=== PATIENT | female | born 1960 | race Caucasian/White ===

== ENCOUNTER → 2016-06-27 | Outpatient (CLI) | payer OTHER ==
[~2016-06-27] MED LIST: ALBUAER9; ALLO100T PO; ATEN-173 PO; CARB1SOL OPB; CYCL10TA6 PO; DIAZ5TAB PO; DOCU50CA2; HYDR-5688 PO; LSN/10125 PO; METH-446 PO; MOME100A INH; MONT1TAB3 PO; OXYB5TAB; PANT40TA PO; SIMV20TA5 PO; VENL75CA PO; ZOLP5TAB PO
== END | disposition home or self-care (01) ==
LOC: C.PATHSPEC 16:56
PROVIDERS: ATTEND Nurse Practitioner Adult Health
DX: R31.29 Other microscopic hematuria (principal)

== ENCOUNTER → 2016-06-27 | Outpatient (CLI) | payer OTHER ==
--- NOTE | 2016-06-27 09:58 | DIAGNOSTIC IMAGING REPORT ---
ABDOMEN AND PELVIS CT WITHOUT CONTRAST CT DOSE: 653.68 mGycm HISTORY: Flank pain R10.9 Right flank painN20.0 Nephrolithiasisno latex allergy E X0 TECHNIQUE: Multiaxial CT images of the abdomen and pelvis were performed without contrast. COMPARISON STUDY: None. FINDINGS: Lung bases are clear. Liver appears uniform. There is a 1.6 cm cyst anterior right hepatic lobe. Gallbladder is either severely contracted or absent. Bowel pattern is nonobstructive. Appendix has been removed. The kidneys negative for calcification or hydronephrosis. Bladder is midline. There are several pelvic calcifications. These primarily appear to be vascular. There is no evidence for an obstructing urinary tract calculus. IMPRESSION: Negative study of the abdomen and pelvis. Study specifically negative for nephrocalcinosis. Electronically signed by: Marciano Matson M.D. 06/27/2016 9:57 AM Dictated Date/Time: 06/27/2016 9:51 AM
== END | disposition home or self-care (01) ==
LOC: C.CTS 09:29
PROVIDERS: ATTEND Urology
DX: N20.0 Calculus of kidney (principal); R10.9 Unspecified abdominal pain

== ENCOUNTER → 2017-09-03 | Outpatient (CLI) | payer OTHER ==
--- NOTE | 2017-09-03 15:22 | DIAGNOSTIC IMAGING REPORT ---
[facility] CLINICAL HISTORY: R10.9 Right flank [id number] COMPARISON STUDY: CT scan dated 06/27/2016 FINDINGS: There is no pathologic bowel dilatation. The renal shadows are largely obscured by overlying bowel gas and fecal material. No definite renal calculi are visualized. There are multiple nonspecific pelvic basin calcifications likely representing phleboliths. If there is clinical concern over the presence of a ureteral calculus, a CT scan could be obtained in follow-up. There are postsurgical changes present within the lower lumbar spine. IMPRESSION: 1. No evidence of pathologic bowel dilatation 2. No definite urinary tract calculi are visualized on conventional radiographic imaging. Electronically signed by: Abhishek Graves M.D. 09/03/2017 3:21 PM Dictated Date/Time: 09/03/2017 3:20 PM
== END | disposition home or self-care (01) ==
LOC: C.RAD1850 15:02
PROVIDERS: ATTEND Nurse Practitioner Family
DX: R10.9 Unspecified abdominal pain (principal)

== ENCOUNTER 2024-02-11 16:07 | Inpatient (IN) ==
--- NOTE | 2024-02-11 16:22 | Emergency Department Note ---
Impression & Plan Intermittent hypertension, Intermittent palpitations, Hot flashes, Chest pain ED Provider Note NAME: MARIO OWENS AGE: 63 SEX: F : 1960 ARRIVES VIA: Ambulance INFORMANT: Patient ED PROVIDER(S): Reed Medrano MD CHIEF COMPLAINT: Chest pain, shortness of breath, referred. PLAN: Disposition: Admit MEDICAL DECISION MAKING: The patient is a 63-year-old woman with a past medical history of hypertension, palpitations who presents to the emergency department for evaluation of weeks of constant chest pressure, palpitations, shortness of breath with sweating that began last week where she contacted her cardiology office and was referred to the emergency department where she presented to [place] on Friday where she had unremarkable testing and then returned on Friday due to no improvement. She describes having normal blood tests and also a CT scan that was normal. She reports she has a heart monitor that she is wearing where she understands there were benign extra beats and no high risk arrhythmia. She reports she contacted her cardiology office in [place] and they recommended she come to [facility] today. The patient reports she has had a nuclear stress test in the past and estimates this may have been 1.5 years ago. She denies any measured fevers, cough, nausea, vomiting or diarrhea. The patient received full dose aspirin and nitroglycerin by EMS. On arrival to the emergency department patient reports mild severity/persistence of symptoms. On evaluation the patient is in no distress, afebrile with heart rate in the 110s and blood pressure 140s/90s. She appears clinically dry. EKG with LVH without overt acute ischemia. CXR negative for acute cardiopulmonary process per my personal preliminary review/interpretation. WBC 11K with neutrophilia but no left shift, nonspecific. H/H and platelets within normal limits. Chemistry without metabolic acidosis. BUN/creatinine is 23 and calcium is 10.5, consistent with patient's clinical dry appearance. Magnesium 1.9, within normal limits. LFTs are unremarkable. High-sensitivity troponin 10.1, within normal limits. Respiratory BioFire was negative. Lyme screen was negative. Anaplasma and Babesia smear was negative with DNA testing pending. D-dimer was elevated at [address] of the chest was again repeated and was negative for PE. In the interim we did obtain the patient's assessment from [facility] and her testing was unremarkable including CT of the head and CT of the chest. On reevaluation elevated by nursing the patient had a recurrent episode of hot flashes with tachycardia, diaphoresis and elevated blood pressure. Upon further discussion with the patient she reports that he is episodes have been occurring for weeks in her sweating episodes and elevated blood pressure for months or more. Given the patient's description of episodic symptoms possibility of neuroendocrine etiologies/pheochromocytoma is considered. Random urine metanephrine ordered but is a send out. Otherwise patient's UA is without convincing evidence of infection. Given continued symptoms with third emergency department visit in 3 days patient agrees with referral to hospital service for admission for further management. [facility] who will evaluate the patient for admission. Further management per admitting team. Triage Nursing notes reviewed and agree them. Prior/external medical records reviewed Vital Signs: reviewed Differential diagnosis: Cardiac ischemia, aortic dissection, pulmonary embolism, pneumothorax, pneumonia, pericarditis, myocarditis, esophageal rupture, GERD, cholecystitis, pancreatitis, musculoskeletal, as well as other pathologies. ER treatment provided: See below. Diagnostics interpreted by me: ECG: Sinus tachycardia, 109 bpm, LVH with repolarization abnormality, no overt ST ovation or depression, QTc 484, QRS 112. No prior EKGs for comparison. Cardiac Monitoring: An order for continuous cardiac monitoring was placed and demonstrated Sinus tachycardia, 109 bpm, No ectopy. Laboratory studies: See below Imaging studies: See below Consultation(s): Case was discussed with Christa Vargas, who will evaluate the patient for admission. HPI: The patient is a 63-year-old woman with a past medical history of hypertension, palpitations who presents to the emergency department for evaluation of weeks of constant chest pressure, palpitations, shortness of breath with sweating that began last week where she contacted her cardiology office and was referred to the emergency department where she presented to [place] on Friday where she had unremarkable testing and then returned on Friday due to no improvement. She describes having normal blood tests and also a CT scan that was normal. She reports she has a heart monitor that she is wearing where she understands there were benign extra beats and no high risk arrhythmia. She reports she contacted her cardiology office in [place] and they recommended she come to [facility] today. The patient reports she has had a nuclear stress test in the past and estimates this may have been 1.5 years ago. She denies any measured fevers, cough, nausea, vomiting or diarrhea. The patient received full dose aspirin and nitroglycerin by EMS. ROS: See above HPI for pertinent positives & negatives. A total of 10 systems reviewed and were otherwise negative. VITALS:See Below PHYSICAL EXAMINATION: GENERAL: Awake, alert, anxious appearing, in no distress HENT: Normocephalic, atraumatic. Oropharynx with dry mucous membranes and otherwise unremarkable. EYES: Normal conjunctiva. Sclera non-icteric. NECK: Supple. No nuchal rigidity. FROM. No JVD. RESPIRATORY: Clear to auscultation. CARDIAC: Tachycardic rate, normal rhythm. Extremities warm and well perfused. Pulses equal. ABDOMEN: Soft, non-distended. No tenderness to palpation. No rebound or guarding. No masses. MUSCULOSKELETAL: Chest examination reveals no tenderness. The back is symmetrical on inspection without obvious abnormality. There is no CVA tenderness to palpation. No joint edema. LOWER EXTREMITIES: Calves are equal size bilaterally and non-tender. No edema. No discoloration. NEURO: Normal sensorium. No sensory or motor deficits noted. SKIN: No rash or jaundice noted. Reed Medrano MD Past Med/Surg History Problem List (Updated 02/12/24 @ 04:37 by Reed Medrano MD) Chest pain (Acute) Hot flashes (Acute) Intermittent palpitations (Acute) Intermittent hypertension (Acute) History of recurrent UTIs Vaginal prolapse Social History Smoking Status: Never smoker Second Hand Exposure: No; Do You Dip or Chew Tobacco: No; Hx Alcohol Use: Yes Alcohol type: beer Hx Substance Use: No Preferred Language: Armenian Communication Ability: Effective Western Felt Hat Blocker Required: No Beliefs That Will Affect Care: None Current Living Situation: Spouse Other Information That Helps Us Care for You: No Feels Safe at Home: Yes Safety Concerns: Feels Safe At This Time Assistive Devices: Cane, Glasses and Walker Allergies Allergies Allergy/AdvReac Type Severity Reaction Status Date / Time No Known Allergies Allergy Unverified 11/27/20 15:32 Home Meds Home Medications Medication Instructions Recorded Confirmed allopurinol 300 mg tablet 300 mg PO DAILY 02/12/24 02/12/24 amlodipine 5 mg tablet 5 mg PO DAILY 02/12/24 02/12/24 atenolol 25 mg tablet 25 mg PO DAILY 02/12/24 02/12/24 cholecalciferol (vitamin D3) 50 50 mcg PO DAILY 02/12/24 02/12/24 mcg (2,000 unit) tablet docusate sodium 50 mg capsule 50 mg PO BID 02/12/24 02/12/24 hydrocodone 5 mg-acetaminophen 325 1 tab PO Q6H PRN Pain 02/12/24 02/12/24 mg tablet levothyroxine 125 mcg tablet 125 mcg PO DAILY 02/12/24 02/12/24 mometasone-formoterol HFA 100 2 puff inhalation BID 02/12/24 02/12/24 mcg-5 mcg/actuation aerosol inhaler (Dulera) montelukast 10 mg tablet 10 mg PO DAILY 02/12/24 02/12/24 oxybutynin chloride 10 mg 10 mg PO DAILY 02/12/24 02/12/24 tablet,extended release 24 hr pantoprazole 40 mg tablet,delayed 40 mg PO DAILY 02/12/24 02/12/24 release simvastatin 20 mg tablet 20 mg PO HS 02/12/24 02/12/24 venlafaxine 75 mg capsule,extended 75 mg PO BID 02/12/24 02/12/24 release 24 hr zolpidem 10 mg tablet 10 mg PO HS PRN Insomnia 02/12/24 02/12/24 Results & Data (ED) Vital Signs Vital Signs - 24 hr 02/11/24 16:12 02/11/24 16:19 02/11/24 16:20 Temperature 36.6 C Temperature Source Oral Pulse Rate 112 H Pulse Rate [Right Finger] Pulse Rate from SpO2 Sensor Respiratory Rate 22 Respiratory Effort / Characteristics Non-Labored Respiratory Depth Normal Blood Pressure Blood Pressure [Right Arm] Blood Pressure Mean Blood Pressure Mean [Right Arm] Pulse Oximetry 143 H 97 96 Oxygen Delivery Method Room Air Room Air Room Air Oxygen Flow Rate 0 Sepsis Recent Fever Within 48 Hours No Sepsis New/Unexplained Change in Mental Status N/A Sepsis Action Taken by Nursing No Action Required 02/11/24 16:50 02/11/24 17:30 02/11/24 17:30 Temperature Temperature Source Pulse Rate 112 H Pulse Rate [Right Finger] 115 H Pulse Rate from SpO2 Sensor Respiratory Rate 21 Respiratory Effort / Characteristics Non-Labored Respiratory Depth Normal Blood Pressure 145/93 H Blood Pressure [Right Arm] 145/93 H Blood Pressure Mean 101 Blood Pressure Mean [Right Arm] 110 Pulse Oximetry 98 Oxygen Delivery Method Room Air Oxygen Flow Rate Sepsis Recent Fever Within 48 Hours Sepsis New/Unexplained Change in Mental Status Sepsis Action Taken by Nursing 02/11/24 17:30 02/11/24 17:45 02/11/24 17:57 Temperature Temperature Source Pulse Rate 106 H 106 H Pulse Rate [Right Finger] Pulse Rate from SpO2 Sensor 107 H Respiratory Rate 21 20 Respiratory Effort / Characteristics Respiratory Depth Blood Pressure 145/93 H Blood Pressure [Right Arm] Blood Pressure Mean 101 Blood Pressure Mean [Right Arm] Pulse Oximetry 96 Oxygen Delivery Method Oxygen Flow Rate Sepsis Recent Fever Within 48 Hours Sepsis New/Unexplained Change in Mental Status Sepsis Action Taken by Nursing 02/11/24 19:36 02/11/24 20:46 02/11/24 21:01 Temperature Temperature Source Pulse Rate 98 H 100 H Pulse Rate [Right Finger] 100 H Pulse Rate from SpO2 Sensor Respiratory Rate 22 18 Respiratory Effort / Characteristics Respiratory Depth Blood Pressure 153/103 H Blood Pressure [Right Arm] 146/105 H Blood Pressure Mean 120 Blood Pressure Mean [Right Arm] 118 Pulse Oximetry 97 96 93 Oxygen Delivery Method Room Air Room Air Room Air Oxygen Flow Rate Sepsis Recent Fever Within 48 Hours Sepsis New/Unexplained Change in Mental Status Sepsis Action Taken by Nursing 02/11/24 21:38 02/11/24 22:08 02/11/24 23:02 Temperature Temperature Source Pulse Rate 110 H 95 H 121 H Pulse Rate [Right Finger] Pulse Rate from SpO2 Sensor 110 H 96 H 99 H Respiratory Rate 21 15 22 Respiratory Effort / Characteristics Respiratory Depth Blood Pressure 149/79 H 158/96 H Blood Pressure [Right Arm] Blood Pressure Mean 102 116 Blood Pressure Mean [Right Arm] Pulse Oximetry 97 96 97 Oxygen Delivery Method Room Air Room Air Room Air Oxygen Flow Rate Sepsis Recent Fever Within 48 Hours Sepsis New/Unexplained Change in Mental Status Sepsis Action Taken by Nursing 02/11/24 23:13 02/12/24 00:03 Temperature 36.6 C Temperature Source Oral Pulse Rate 96 H Pulse Rate [Right Finger] Pulse Rate from SpO2 Sensor Respiratory Rate Respiratory Effort / Characteristics Respiratory Depth Blood Pressure Blood Pressure [Right Arm] Blood Pressure Mean Blood Pressure Mean [Right Arm] Pulse Oximetry Oxygen Delivery Method Oxygen Flow Rate Sepsis Recent Fever Within 48 Hours Sepsis New/Unexplained Change in Mental Status Sepsis Action Taken by Nursing Laboratory Data Attestation: I reviewed the patient's lab results. 02/11/24 17:23 02/11/24 17:23 Lab Results 02/11/24 02/11/24 02/11/24 Range/Units 16:20 16:20 16:45 WBC Cancelled RBC Cancelled Hgb Cancelled Hct Cancelled MCV Cancelled MCH Cancelled MCHC Cancelled RDW Std Deviation Cancelled RDW Coeff of Anoop Cancelled Plt Count Cancelled MPV Cancelled Immature Gran % (Auto) Cancelled Neut % (Auto) Cancelled Lymph % (Auto) Cancelled [place] % (Auto) Cancelled Eos % (Auto) Cancelled Baso % (Auto) Cancelled Neut # (Auto) Cancelled Lymph # (Auto) Cancelled [place] # (Auto) Cancelled Eos # (Auto) Cancelled Baso # (Auto) Cancelled Immature Gran # (Auto) Cancelled Absolute Nucleated RBC Cancelled Nucleated RBC % (auto) Cancelled Neutrophils % (Manual) Cancelled Band Neutrophils % Cancelled Lymphocytes % (Manual) Cancelled Prolymphocyte % Cancelled Reactive Lymphs % (Man) Cancelled Monocytes % (Manual) Cancelled Eosinophils % (Manual) Cancelled Basophils % (Manual) Cancelled Metamyelocytes % (Man) Cancelled Myelocytes % (Man) Cancelled Promyelocytes % (Man) Cancelled Blast Cells % (Manual) Cancelled Plasma Cell % (Manual) Cancelled Other Cells % Cancelled Nucleated RBC % Cancelled Neutrophils # (Manual) Cancelled Band Neutrophils # Cancelled Total Absolute Neuts Cancelled Lymphocytes # (Manual) Cancelled Prolymphocyte # Cancelled Reactive Lymphs # Cancelled Total Abs Lymphocytes Cancelled Monocytes # (Manual) Cancelled Eosinophils # (Manual) Cancelled Basophils # (Manual) Cancelled Metamyelocytes # (Man) Cancelled Myelocytes # (Manual) Cancelled Promyelocytes # (Man) Cancelled Blast Cells # (Man) Cancelled Plasma Cell # (Manual) Cancelled Other Cells # Cancelled Nucleated RBCs # (Man) Cancelled Hypersegmented Neuts Cancelled Hyposegmented Neuts Cancelled Hypogranular Neuts Cancelled Large Granular Lymphs Cancelled # Lrg Granular Lymphs Cancelled Hairy Cells Cancelled Smudge Cells Cancelled Toxic Granulation Cancelled Toxic Vacuolation Cancelled Dohle Bodies Cancelled Dottie Rods Cancelled Platelet Estimate Cancelled Hypogranular Platelets Cancelled Giant Platelets Cancelled Platelet Satelliting Cancelled RBC Morphology Cancelled Polychromasia Cancelled Hypochromasia Cancelled Poikilocytosis Cancelled Basophilic Stippling Cancelled Anisocytosis Cancelled Microcytosis Cancelled Macrocytosis Cancelled Spherocytes Cancelled Pappenheimer Bodies Cancelled Sickle Cells Cancelled Target Cells Cancelled Tear Drop Cells Cancelled Ovalocytes Cancelled Stomatocytes Cancelled Avilez-[place] Bodies Cancelled Echinocytes Cancelled Acanthocytes (Spur) Cancelled Rouleaux Cancelled RBC Agglutinates Cancelled Schistocytes Cancelled Sezary Cell Cancelled PT Cancelled INR Cancelled D-Dimer Cancelled Cancelled Sodium TNP Potassium TNP Chloride 101 (98-107) mmol/L Carbon Dioxide 25 (21-32) mmol/L Anion Gap TNP BUN 20 (6-23) mg/dl Creatinine 0.85 (0.6-1.2) mg/dl Est Cr Clr Drug Dosing 71.9 ml/min eGFR 77.41 BUN/Creatinine Ratio 23.5 H (10-20) Glucose 103 H (70-99(Fasting)) mg/dl Calcium 10.5 H (8.6-10.3) mg/dl Magnesium TNP Total Bilirubin 0.5 (0.2-1.0) mg/dl AST TNP ALT 21 (7-52) U/L Alkaline Phosphatase 82 (34-104) U/L Troponin I High Sens 10.1 (0-14) pg/ml Total Protein 7.8 (6.0-8.3) gm/dl Albumin 4.7 (3.4-5.0) gm/dl Globulin 3.1 (2.5-4.0) gm/dl Albumin/Globulin Ratio 1.5 (0.9-2) Lipase 25 (11-82) U/L TSH Cancelled Urine Color Yellow Urine Appearance Clear (Clear) Urine pH 6.0 (4.5-7.5) Ur Specific [place] 1.010 (1.000-1.030) Urine Protein Negative (Negative) Urine Glucose (UA) Negative (Negative) Urine Ketones Trace H (Negative) Urine Blood 2+ H (Negative) Urine Nitrite Negative (Negative) Urine Bilirubin Negative (Negative) Urine Urobilinogen Negative (Negative) Ur Leukocyte Esterase Negative (Negative) Urine WBC (Auto) 0-5 (0-5) /hpf Urine RBC (Auto) 3-5 H (0-2) /hpf U Hyaline Cast (Auto) 0-2 (0-2) /lpf U Epithel Cells (Auto) 0-2 (0-2) /hpf Urine Bacteria (Auto) None Seen (None Seen) Adenovirus (PCR) (NotDetected) Anaplasma Smear Cancelled Babesia Smear Cancelled B. pertussis DNA (PCR) (NotDetected) B.parapertussis DNA PCR (NotDetected) Lyme Disease Screen (Negative) C. pneumoniae DNA (PCR) (NotDetected) Coronavirus OC43 (PCR) (NotDetected) Coronavirus HKU1 (PCR) (NotDetected) Coronavirus 229E (PCR) (NotDetected) SARS-CoV-2 (PCR) (NotDetected) Coronavirus NL63 (PCR) (NotDetected) Human Metapneumovir PCR (NotDetected) Influenza Type A (PCR) (NotDetected) Influenza Type B (PCR) (NotDetected) M. pneumoniae (PCR) (NotDetected) Parainfluenza 1 (PCR) (NotDetected) Parainfluenza 2 (PCR) (NotDetected) Parainfluenza 3 (PCR) (NotDetected) Parainfluenza 4 (PCR) (NotDetected) RSV (PCR) (NotDetected) Entero/Rhino (PCR) (NotDetected) Blood Parasites ID Cancelled 02/11/24 02/11/24 02/11/24 Range/Units 17:23 17:28 20:15 WBC 11.15 H RBC 5.25 Hgb 14.4 Hct 45.0 MCV 85.7 MCH 27.4 MCHC 32.0 RDW Std Deviation 48.4 H RDW Coeff of Anoop 15.5 H Plt Count 333 MPV 9.4 Immature Gran % (Auto) 0.4 Neut % (Auto) 65.6 Lymph % (Auto) 25.3 [place] % (Auto) 7.4 Eos % (Auto) 0.6 Baso % (Auto) 0.7 Neut # (Auto) 7.32 H Lymph # (Auto) 2.82 [place] # (Auto) 0.82 H Eos # (Auto) 0.07 Baso # (Auto) 0.08 Immature Gran # (Auto) 0.04 Absolute Nucleated RBC Nucleated RBC % (auto) Neutrophils % (Manual) Band Neutrophils % Lymphocytes % (Manual) Prolymphocyte % Reactive Lymphs % (Man) Monocytes % (Manual) Eosinophils % (Manual) Basophils % (Manual) Metamyelocytes % (Man) Myelocytes % (Man) Promyelocytes % (Man) Blast Cells % (Manual) Plasma Cell % (Manual) Other Cells % Nucleated RBC % Neutrophils # (Manual) Band Neutrophils # Total Absolute Neuts Lymphocytes # (Manual) Prolymphocyte # Reactive Lymphs # Total Abs Lymphocytes Monocytes # (Manual) Eosinophils # (Manual) Basophils # (Manual) Metamyelocytes # (Man) Myelocytes # (Manual) Promyelocytes # (Man) Blast Cells # (Man) Plasma Cell # (Manual) Other Cells # Nucleated RBCs # (Man) Hypersegmented Neuts Hyposegmented Neuts Hypogranular Neuts Large Granular Lymphs # Lrg Granular Lymphs Hairy Cells Smudge Cells Toxic Granulation Toxic Vacuolation Dohle Bodies Dottie Rods Platelet Estimate Hypogranular Platelets Giant Platelets Platelet Satelliting RBC Morphology Polychromasia Hypochromasia Poikilocytosis Basophilic Stippling Anisocytosis Microcytosis Macrocytosis Spherocytes Pappenheimer Bodies Sickle Cells Target Cells Tear Drop Cells Ovalocytes Stomatocytes Avilez-[place] Bodies Echinocytes Acanthocytes (Spur) Rouleaux RBC Agglutinates Schistocytes Sezary Cell PT 9.8 INR 0.9 D-Dimer 790 H* Sodium 139 Potassium 3.5 Chloride (98-107) mmol/L Carbon Dioxide (21-32) mmol/L Anion Gap BUN (6-23) mg/dl Creatinine (0.6-1.2) mg/dl Est Cr Clr Drug Dosing ml/min eGFR BUN/Creatinine Ratio (10-20) Glucose (70-99(Fasting)) mg/dl Calcium (8.6-10.3) mg/dl Magnesium 1.9 Total Bilirubin (0.2-1.0) mg/dl AST 19 ALT (7-52) U/L Alkaline Phosphatase (34-104) U/L Troponin I High Sens (0-14) pg/ml Total Protein (6.0-8.3) gm/dl Albumin (3.4-5.0) gm/dl Globulin (2.5-4.0) gm/dl Albumin/Globulin Ratio (0.9-2) Lipase (11-82) U/L TSH 1.605 Urine Color Urine Appearance (Clear) Urine pH (4.5-7.5) Ur Specific [place] (1.000-1.030) Urine Protein (Negative) Urine Glucose (UA) (Negative) Urine Ketones (Negative) Urine Blood (Negative) Urine Nitrite (Negative) Urine Bilirubin (Negative) Urine Urobilinogen (Negative) Ur Leukocyte Esterase (Negative) Urine WBC (Auto) (0-5) /hpf Urine RBC (Auto) (0-2) /hpf U Hyaline Cast (Auto) (0-2) /lpf U Epithel Cells (Auto) (0-2) /hpf Urine Bacteria (Auto) (None Seen) Adenovirus (PCR) Not Detected (NotDetected) Anaplasma Smear See Comment Babesia Smear See Comment B. pertussis DNA (PCR) Not Detected (NotDetected) B.parapertussis DNA PCR Not Detected (NotDetected) Lyme Disease Screen Negative (Negative) C. pneumoniae DNA (PCR) Not Detected (NotDetected) Coronavirus OC43 (PCR) Not Detected (NotDetected) Coronavirus HKU1 (PCR) Not Detected (NotDetected) Coronavirus 229E (PCR) Not Detected (NotDetected) SARS-CoV-2 (PCR) Not Detected (NotDetected) Coronavirus NL63 (PCR) Not Detected (NotDetected) Human Metapneumovir PCR Not Detected (NotDetected) Influenza Type A (PCR) Not Detected (NotDetected) Influenza Type B (PCR) Not Detected (NotDetected) M. pneumoniae (PCR) Not Detected (NotDetected) Parainfluenza 1 (PCR) Not Detected (NotDetected) Parainfluenza 2 (PCR) Not Detected (NotDetected) Parainfluenza 3 (PCR) Not Detected (NotDetected) Parainfluenza 4 (PCR) Not Detected (NotDetected) RSV (PCR) Not Detected (NotDetected) Entero/Rhino (PCR) Not Detected (NotDetected) Blood Parasites ID Administered Medications Discontinued Medications Sodium Chloride (Nss) 500 mls @ 999 mls/hr IV .Q31M ONE Stop: 02/11/24 16:59 Last Infusion: 02/11/24 18:05 Dose: Infused Documented By: Admin: 02/11/24 17:29 Dose: 999 mls/hr Documented By: CHRISTIAN Ioversol (Optiray 320 125ml) 117 ml IV ONCE ONE Stop: 02/11/24 21:27 Last Admin: 02/11/24 21:27 Dose: 117 ml Documented By: VAM[facility] Imaging Data Radiologist's Impression: Chest X-Ray 02/11/24 16:14 XR chest 1V portable HISTORY: 63 years-old Female Chest pain, nonspecific COMPARISON: 01/05/2013 TECHNIQUE: AP view of the chest FINDINGS: Cardiomediastinal and hilar silhouettes are unchanged. An electronic device projects over the left heart border. No pneumothorax, pleural effusion or airspace consolidation. Bones appear grossly intact. IMPRESSION: No acute process. ACT 112: Negative or not required by law. The above report was generated using voice recognition software. It may contain grammatical, syntax or spelling errors. Electronically signed by: Kuldip Mcclain M.D. 02/11/2024 4:30 PM Chest CTA 02/11/24 21:04 Exam(s): CTA CHEST IV Amt: 117ml optiray 320 EXAM: CT Angiography Chest With Intravenous Contrast CLINICAL HISTORY: Reason for exam: cp, sob, elevated D-dimer, r/o PE. TECHNIQUE: Axial computed tomographic angiography images of the chest with intravenous contrast. CTDI is 22.35 mGy and DLP is 716.27 mGy-cm. Automated exposure control was utilized for the study. A dose lowering technique was utilized adhering to the principles of ALARA. MIP reconstructed images were created and reviewed. COMPARISON: No relevant prior studies available. FINDINGS: Pulmonary arteries: Adequate pulmonary artery opacification. Normal caliber main pulmonary artery. No evidence of pulmonary embolism. Aorta: No acute findings. No aortic aneurysm or dissection. Lungs: Unremarkable. No mass. No consolidation. Pleural space: Unremarkable. No significant effusion. No pneumothorax. Heart: Unremarkable. No cardiomegaly. No significant pericardial effusion. Mediastinum: Small hiatal hernia. Bones/joints: No acute fracture. No dislocation. Soft tissues: Unremarkable. Lymph nodes: Unremarkable. No enlarged lymph nodes. Liver: Benign hepatic cyst. Tubes, lines and devices: Loop recorder implanted in the anterior left chest wall. IMPRESSION: No evidence of pulmonary embolism. Electronically signed by: Muna Ray M.D. 02/11/24 23:01 PM Discharge Plan Visit Data Chief Complaint: Chest Pain Stated Complaint: CHEST PAIN ED Provider: Reed Medrano Discharge Problem: Intermittent hypertension, Intermittent palpitations, Hot flashes, Chest pain Patient Disposition: Admitted As Inpatient Discharge Instructions Interventions: ED Discharge Assessment Last Done: 02/12/24 02:18 Discharge Problem: Chest pain Qualifiers: Chest pain type: unspecified Qualified Code(s): R07.9 - Chest pain, unspecified
--- NOTE | 2024-02-11 16:33 | XRay Report ---
XR chest 1V portable HISTORY: 63 years-old Female Chest pain, nonspecific COMPARISON: 01/05/2013 TECHNIQUE: AP view of the chest FINDINGS: Cardiomediastinal and hilar silhouettes are unchanged. An electronic device projects over the left he art border. No pneumothorax, pleural effusion or airspace consolidation. Bones appear grossly intact. IMPRESSION: No acute process. ACT 112: Negative or not required by law. The above report was generated using voice recognition software. It may contain grammatical, syntax o r spelling errors. Electronically signed by: Kuldip Mcclain M.D. 02/11/2024 4:30 PM
[2024-02-11 17:02] LABS: Alanine Aminotransferase 21 U/L (7-52); Albumin Globulin Ratio 1.5 (0.9-2); Albumin Level 4.7 gm/dl (3.4-5.0); Alkaline Phosphatase 82 U/L (34-104); BUN Creatinine Ratio 23.5 (10-20); Bilirubin,Total 0.5 mg/dl (0.2-1.0); Blood Urea Nitrogen 20 mg/dl (6-23); Calcium 10.5 mg/dl (8.6-10.3); Carbon Dioxide 25 mmol/L (21-32); Chloride 101 mmol/L (98-107); Creatinine Clr Calc Pharmacy 71.9 ml/min; Globulin 3.1 gm/dl (2.5-4.0); Glucose 103 mg/dl (70-99(Fasting)); Lipase 25 U/L (11-82); Total Protein 7.8 gm/dl (6.0-8.3)
[2024-02-11 17:12] LABS: Troponin I High Sensitivity 10.1 pg/ml (0-14)
[2024-02-11] MEDS: SODIUM CHLORIDE 0.9% 500 ML IV ONE (17:29)
[2024-02-11 17:48] LABS: Basophils # (auto) 0.08 K/uL (0.00-0.20); Basophils % (auto) 0.7 %; Eosinophils # (auto) 0.07 K/uL (0.00-0.50); Eosinophils % (auto) 0.6 %; Hemoglobin 14.4 g/dl (12.0-16.0); Immature Granulocytes # (auto) 0.04 K/uL (0.01-0.20); Immature Granulocytes % (auto) 0.4 %; Lymphocytes # (auto) 2.82 K/uL (1.20-3.40); Lymphocytes % (auto) 25.3 %; Mean Corpuscular Hemoglobin 27.4 pg (25.0-34.0); Mean Corpuscular Volume 85.7 fL (80.0-100.0); Mean Platelet Volume 9.4 fL (9.4-12.4); Monocytes # (auto) 0.82 K/uL (0.11-0.59); Monocytes % (auto) 7.4 %; Neutrophils # (auto) 7.32 K/uL (1.40-6.50); Neutrophils % (auto) 65.6 %; Platelet Count 333 K/uL (130-400); RDW Coefficient of Variation 15.5 % (11.5-14.5); RDW Standard Deviation 48.4 fL (36.4-46.3); Red Blood Count 5.25 M/uL (4.20-5.40); White Blood Count 11.15 K/ul (4.8-10.8)
[2024-02-11 17:57] LABS: Magnesium 1.9 mg/dl (1.7-2.4); Potassium 3.5 mmol/L (3.5-5.1)
[2024-02-11 18:45] LABS: Adenovirus PCR Not Detected (NotDetected); Bordetella parapertussis PCR Not Detected (NotDetected); Bordetella pertussis PCR Not Detected (NotDetected); Chlamydia pneumoniae PCR Not Detected (NotDetected); Coronavirus 229E PCR Not Detected (NotDetected); Coronavirus CoV-2 (COVID19)PCR Not Detected (NotDetected); Coronavirus HKU1 PCR Not Detected (NotDetected); Coronavirus NL63 PCR Not Detected (NotDetected); Coronavirus OC43PCR Not Detected (NotDetected); Human Metapneumovirus PCR Not Detected (NotDetected); Influenza A PCR Not Detected (NotDetected); Influenza B PCR Not Detected (NotDetected); Mycoplasma pneumoniae PCR Not Detected (NotDetected); Parainfluenza Virus 1 PCR Not Detected (NotDetected); Parainfluenza Virus 2 PCR Not Detected (NotDetected); Parainfluenza Virus 3 PCR Not Detected (NotDetected); Parainfluenza Virus 4 PCR Not Detected (NotDetected); Respiratory Syncytial VirusPCR Not Detected (NotDetected); Rhinovirus/Enterovirus PCR Not Detected (NotDetected)
[2024-02-11 20:40] LABS: INR 0.9 (0.9-1.1); Prothrombin Time 9.8 Seconds (9.0-12.0)
[2024-02-11 21:12] LABS: D Dimer 790 ug/L FEU (0-500)
[2024-02-11] MEDS: OPTIRAY 320 125ml IV ONE (21:27)
--- NOTE | 2024-02-11 23:02 | CT Scan Report ---
Exam(s): CTA CHEST IV Amt: 117ml optiray 320 EXAM: CT Angiography Chest With Intravenous Contrast CLINICAL HISTORY: Reason for exam: cp, sob, elevated D-dimer, r/o PE. TECHNIQUE: Axial computed tomographic angiography images of the chest with intravenous contrast. CTDI is 22.35 mGy and DLP is 716.27 mGy-cm. Automated exposure control was utilized for the study. A dose lowering technique was utilized adhering to the principles of ALARA. MIP reconstructed images were created and reviewed. COMPARISON: No relevant prior studies available. FINDINGS: Pulmonary arteries: Adequate pulmonary artery opacification. Normal caliber main pulmonary artery. No evidence of pulmonary embolism. Aorta: No acute findings. No aortic aneurysm or dissection. Lungs: Unremarkable. No mass. No consolidation. Pleural space: Unremarkable. No significant effusion. No pneumothorax. Heart: Unremarkable. No cardiomegaly. No significant pericardial effusion. Mediastinum: Small hiatal hernia. Bones/joints: No acute fracture. No dislocation. Soft tissues: Unremarkable. Lymph nodes: Unremarkable. No enlarged lymph nodes. Liver: Benign hepatic cyst. Tubes, lines and devices: Loop recorder implanted in the anterior left chest wall. IMPRESSION: No evidence of pulmonary embolism. Electronically signed by: Muna Ray M.D. 02/11/24 23:01 PM
[2024-02-12 00:18] LABS: Thyroid Stimulating Hormone 1.605 uIu/ml (0.300-4.500)
[2024-02-12 00:19] LABS: Appearance Urine Clear (Clear); Bacteria Urine Automated None Seen (None Seen); Bilirubin Urine Negative (Negative); Blood Urine 2+ (Negative); Cast Urine Automated 0-2 /lpf (0-2); Color Urine Yellow; Epithelial Cell Urine Auto 0-2 /hpf (0-2); Glucose Urine UA Negative (Negative); Ketones Urine Trace (Negative); Leukocyte Esterase Urine Negative (Negative); Nitrite Urine Negative (Negative); Protein Urine Negative (Negative); Urobilinogen Urine Negative (Negative); WBC Urine Automated 0-5 /hpf (0-5)
--- NOTE | 2024-02-12 01:13 | History & Physical Report ---
Date of Service February 12, 2024 Assessment & Plan (1) Chest pain: Plan: 63-year-old female with past medical history significant for hypertension, asthma, diverticulitis, sepsis and UTI, kidney stones, hypothyroidism, Woodard's esophagus, chronic back pain, duodenal tumor benign as per patient presents with chest pain and palpitations. Patient states since last Friday she is having left-sided chest heaviness on and off and also noticed left arm numbness about 3 times since last Friday. The pain comes on its own, lasts for short period time and goes away. She went to [facility] on Friday and Friday and workup with CT chest and CT head were unremarkable per patient. Seems her dry cell assembly machine tender asked her to come to our hospital. Patient states she is having flushing and headaches and palpitations going on for some time. Patient states that when she leans forward her heart rate goes up. She is followed with cardiology. Says she has a loop recorder placed on December 2022 and so far no abnormal readings as per patient. She says she had cardiac cath about 4 years ago and it was unremarkable. And she had stress test about 1 and half years ago and was okay per patient . Having headaches on and off. Has some neck pain. Has chronic back pain. Last couple of days feeling dizzy and nauseous and diarrhea. Currently afebrile. Vision is okay. No earache. No runny nose or sore throat. No cough. Appetite is okay. No abdominal pain. No blood in the stools. Micturating okay. In the ER she had episode of tachycardia and a high blood pressure. Chest pains and palpitations On and off Flushing and sweating Initial ACS workup okay Will follow serial enzymes and repeat EKG and echo Monitoring telemetry Random urine metanephrines sent by ER Will check plasma metanephrines D-dimer is elevated but CTA chest okay Labs okay. Calcium 10.5 we will follow repeat labs Lyme screen and Anaplasma and Babesia screen negative Cardiology consult in a.m. for further recommendations Hypertension Continue home medications amlodipine and atenolol for now Will monitor Asthma Continue home inhalers Hypothyroidism Continue home Synthyroid TSH is okay Chronic back pain Continue home pain medications as needed Hyperlipidemia On statin Woodard's esophagus On Protonix DVT prophylaxis SCDs for now Disposition Observation telemetry Full code. History of Present Illness Chief Complaint: Chest pain and palpitations Primary Care Provider: Juan Sanford 63-year-old female with past medical history significant for hypertension, asthma, diverticulitis, sepsis and UTI, kidney stones, hypothyroidism, Woodard's esophagus, chronic back pain, duodenal tumor benign as per patient presents with chest pain and palpitations. Patient states since last Friday she is having left-sided chest heaviness on and off and also noticed left arm numbness about 3 times since last Friday. The pain comes on its own, lasts for short period time and goes away. She went to [facility] on Friday and Friday and workup with CT chest and CT head were unremarkable per patient. Seems her dry cell assembly machine tender asked her to come to our hospital. Patient states she is having flushing and headaches and palpitations going on for some time. Patient states that when she leans forward her heart rate goes up. She is followed with cardiology. Says she has a loop recorder placed on December 2022 and so far no abnormal readings as per patient. She says she had cardiac cath about 4 years ago and it was unremarkable. And she had stress test about 1 and half years ago and was okay per patient . Having headaches on and off. Has some neck pain. Has chronic back pain. Last couple of days feeling dizzy and nauseous and diarrhea. Currently afebrile. Vision is okay. No earache. No runny nose or sore throat. No cough. Appetite is okay. No abdominal pain. No blood in the stools. Micturating okay. In the ER she had episode of tachycardia and a high blood pressure. Past medical history. As mentioned above Past surgical history. Back surgeries. EGD and colonoscopy. Tonsillectomy. Cholecystectomy. Bladder tuck surgery. Hysterectomy and oophorectomy. Cardiac cath. Social history. Denies smoking. No alcohol use. No drug use. Family history. Father has hyperlipidemia, hypertension and strokes. Cancer in the family. Allergies Allergy/AdvReac Type Severity Reaction Status Date / Time No Known Allergies Allergy Unverified 11/27/20 15:32 Home Medications Medication Instructions Recorded Confirmed Type allopurinol 300 mg tablet 300 mg PO DAILY 02/12/24 02/12/24 History amlodipine 5 mg tablet 5 mg PO DAILY 02/12/24 02/12/24 History atenolol 25 mg tablet 25 mg PO DAILY 02/12/24 02/12/24 History cholecalciferol (vitamin D3) 50 50 mcg PO DAILY 02/12/24 02/12/24 History mcg (2,000 unit) tablet docusate sodium 50 mg capsule 50 mg PO BID 02/12/24 02/12/24 History hydrocodone 5 mg-acetaminophen 325 1 tab PO Q6H PRN Pain 02/12/24 02/12/24 History mg tablet levothyroxine 125 mcg tablet 125 mcg PO DAILY 02/12/24 02/12/24 History mometasone-formoterol HFA 100 2 puff inhalation BID 02/12/24 02/12/24 History mcg-5 mcg/actuation aerosol inhaler (Dulera) montelukast 10 mg tablet 10 mg PO DAILY 02/12/24 02/12/24 History oxybutynin chloride 10 mg 10 mg PO DAILY 02/12/24 02/12/24 History tablet,extended release 24 hr pantoprazole 40 mg tablet,delayed 40 mg PO DAILY 02/12/24 02/12/24 History release simvastatin 20 mg tablet 20 mg PO HS 02/12/24 02/12/24 History venlafaxine 75 mg capsule,extended 75 mg PO BID 02/12/24 02/12/24 History release 24 hr zolpidem 10 mg tablet 10 mg PO HS PRN Insomnia 02/12/24 02/12/24 History Past Med/Surg History Problem List (Updated 02/12/24 @ 04:37 by Reed Medrano MD) Chest pain (Acute) Hot flashes (Acute) Intermittent palpitations (Acute) Intermittent hypertension (Acute) History of recurrent UTIs Vaginal prolapse Social History Smoking Status: Never smoker Second Hand Exposure: No; Do You Dip or Chew Tobacco: No; Hx Alcohol Use: Yes Alcohol type: beer Hx Substance Use: No Preferred Language: Qatari Communication Ability: Effective Corporate Trainer Required: No Beliefs That Will Affect Care: None Current Living Situation: Spouse Other Information That Helps Us Care for You: No Feels Safe at Home: Yes Safety Concerns: Feels Safe At This Time Assistive Devices: Cane, Glasses and Walker Review of Systems Review of Systems: All systems reviewed & are unremarkable except as noted in HPI & below Physical Exam Physical Exam: General- Not in distress Head- atraumatic Eyes- PERRL. ENT- oropharynx clear Neck- supple, no JVD. Lungs- clear to auscultation no wheezing or crackles Heart- regular rate and rhythm; no murmur, no gallop. Abdomen- normal bowel sounds, soft, nontender, no distension Extremities- no pretibial edema, no erythema seen Neuro- alert, oriented PERRL, no facial palsy; no dysarthria; moves extremities Results & Data Results & Data Vital Signs (Past 12 Hours) Vital Signs Temp Pulse Pulse Resp BP BP Pulse Ox 02/12/24 00:03 96 H 02/11/24 23:13 36.6 C 02/11/24 23:02 121 H 22 158/96 H 97 02/11/24 22:08 95 H 15 149/79 H 96 02/11/24 21:38 110 H 21 97 02/11/24 21:01 100 H 153/103 H 93 02/11/24 20:46 100 H 18 146/105 H 96 02/11/24 19:36 98 H 22 97 02/11/24 17:57 106 H 20 96 02/11/24 17:45 106 H 21 02/11/24 17:30 145/93 H 02/11/24 17:30 145/93 H 02/11/24 17:30 115 H 21 145/93 H 98 02/11/24 16:50 112 H 02/11/24 16:20 96 02/11/24 16:19 97 02/11/24 16:12 36.6 C 112 H 22 143 H O2 Del Method O2 Flow Rate 02/12/24 00:03 02/11/24 23:13 02/11/24 23:02 Room Air 02/11/24 22:08 Room Air 02/11/24 21:38 Room Air 02/11/24 21:01 Room Air 02/11/24 20:46 Room Air 02/11/24 19:36 Room Air 02/11/24 17:57 02/11/24 17:45 02/11/24 17:30 02/11/24 17:30 02/11/24 17:30 Room Air 02/11/24 16:50 02/11/24 16:20 Room Air 02/11/24 16:19 Room Air 0 02/11/24 16:12 Room Air Diagnostic Findings Laboratory Results WBC 11.15 K/ul (4.8-10.8) H 02/11/24 17: RBC 5.25 M/uL (4.20-5.40) 02/11/24 17:23 Hgb 14.4 g/dl (12.0-16.0) 02/11/24 17: Hct 45.0 % (37.0-47.0) 02/11/24 17: MCV 85.7 fL (80.0-100.0) 02/11/24 17: MCH 27.4 pg (25.0-34.0) 02/11/24 17: MCHC 32.0 g/dL (32.0-36.0) 02/11/24 17: RDW Std Deviation 48.4 fL (36.4-46.3) H 02/11/24 17: RDW Coeff of Anoop 15.5 % (11.5-14.5) H 02/11/24 17: Plt Count 333 K/uL (130-400) 02/11/24 17: MPV 9.4 fL (9.4-12.4) 02/11/24 17: Immature Gran % (Auto) 0.4 % 02/11/24: Neut % (Auto) 65.6 % 02/11/24 17: Lymph % (Auto) 25.3 % 02/11/24 17: [place] % (Auto) 7.4 % 02/11/24 17: Eos % (Auto) 0.6 % 02/11/24 17: Baso % (Auto) 0.7 % 02/11/24 17: Neut # (Auto) 7.32 K/uL (1.40-6.50) H 02/11/24 17: Lymph # (Auto) 2.82 K/uL (1.20-3.40) 02/11/24 17:23 [place] # (Auto) 0.82 K/uL (0.11-0.59) H 02/11/24 17: Eos # (Auto) 0.07 K/uL (0.00-0.50) 02/11/24 17: Baso # (Auto) 0.08 K/uL (0.00-0.20) 02/11/24 17:23 Immature Gran # (Auto) 0.04 K/uL (0.01-0.20) 02/11/24 17:23 Absolute Nucleated RBC Cancelled 02/11/24 16:20 Nucleated RBC % (auto) Cancelled 02/11/24 16:20 Neutrophils % (Manual) Cancelled 02/11/24 16:20 Band Neutrophils % Cancelled 02/11/24 16:20 Lymphocytes % (Manual) Cancelled 02/11/24 16:20 Prolymphocyte % Cancelled 02/11/24 16:20 Reactive Lymphs % (Man) Cancelled 02/11/24 16:20 Monocytes % (Manual) Cancelled 02/11/24 16:20 Eosinophils % (Manual) Cancelled 02/11/24 16:20 Basophils % (Manual) Cancelled 02/11/24 16:20 Metamyelocytes % (Man) Cancelled 02/11/24 16:20 Myelocytes % (Man) Cancelled 02/11/24 16:20 Promyelocytes % (Man) Cancelled 02/11/24 16:20 Blast Cells % (Manual) Cancelled 02/11/24 16:20 Plasma Cell % (Manual) Cancelled 02/11/24 16:20 Other Cells % Cancelled 02/11/24 16:20 Nucleated RBC % Cancelled 02/11/24 16:20 Neutrophils # (Manual) Cancelled 02/11/24 16:20 Band Neutrophils # Cancelled 02/11/24 16:20 Total Absolute Neuts Cancelled 02/11/24 16:20 Lymphocytes # (Manual) Cancelled 02/11/24 16:20 Prolymphocyte # Cancelled 02/11/24 16:20 Reactive Lymphs # Cancelled 02/11/24 16:20 Total Abs Lymphocytes Cancelled 02/11/24 16:20 Monocytes # (Manual) Cancelled 02/11/24 16:20 Eosinophils # (Manual) Cancelled 02/11/24 16:20 Basophils # (Manual) Cancelled 02/11/24 16:20 Metamyelocytes # (Man) Cancelled 02/11/24 16:20 Myelocytes # (Manual) Cancelled 02/11/24 16:20 Promyelocytes # (Man) Cancelled 02/11/24 16:20 Blast Cells # (Man) Cancelled 02/11/24 16:20 Plasma Cell # (Manual) Cancelled 02/11/24 16:20 Other Cells # Cancelled 02/11/24 16:20 Nucleated RBCs # (Man) Cancelled 02/11/24 16:20 Hypersegmented Neuts Cancelled 02/11/24 16:20 Hyposegmented Neuts Cancelled 02/11/24 16:20 Hypogranular Neuts Cancelled 02/11/24 16:20 Large Granular Lymphs Cancelled 02/11/24 16:20 # Lrg Granular Lymphs Cancelled 02/11/24 16:20 Hairy Cells Cancelled 02/11/24 16:20 Smudge Cells Cancelled 02/11/24 16:20 Toxic Granulation Cancelled 02/11/24 16:20 Toxic Vacuolation Cancelled 02/11/24 16:20 Dohle Bodies Cancelled 02/11/24 16:20 Dottie Rods Cancelled 02/11/24 16:20 Platelet Estimate Cancelled 02/11/24 16:20 Hypogranular Platelets Cancelled 02/11/24 16:20 Giant Platelets Cancelled 02/11/24 16:20 Platelet Satelliting Cancelled 02/11/24 16:20 RBC Morphology Cancelled 02/11/24 16:20 Polychromasia Cancelled 02/11/24 16:20 Hypochromasia Cancelled 02/11/24 16:20 Poikilocytosis Cancelled 02/11/24 16:20 Basophilic Stippling Cancelled 02/11/24 16:20 Anisocytosis Cancelled 02/11/24 16:20 Microcytosis Cancelled 02/11/24 16:20 Macrocytosis Cancelled 02/11/24 16:20 Spherocytes Cancelled 02/11/24 16:20 Pappenheimer Bodies Cancelled 02/11/24 16:20 Sickle Cells Cancelled 02/11/24 16:20 Target Cells Cancelled 02/11/24 16:20 Tear Drop Cells Cancelled 02/11/24 16:20 Ovalocytes Cancelled 02/11/24 16:20 Stomatocytes Cancelled 02/11/24 16:20 Av[place] Bodies Cancelled 02/11/24 16:20 Echinocytes Cancelled 02/11/24 16:20 Acanthocytes (Spur) Cancelled 02/11/24 16:20 Rouleaux Cancelled 02/11/24 16:20 RBC Agglutinates Cancelled 02/11/24 16:20 Schistocytes Cancelled 02/11/24 16:20 Sezary Cell Cancelled 02/11/24 16:20 PT 9.8 Seconds (9.0-12.0) 02/11/24 20:15 INR 0.9 (0.9-1.1) 02/11/24 20:15 D-Dimer 790 ug/L FEU (0-500) H* 02/11/24 20:15 Sodium 139 mmol/L (136-145) 02/11/24 17:23 Potassium 3.5 mmol/L (3.5-5.1) 02/11/24 17:23 Chloride 101 mmol/L (98-107) 02/11/24 16:20 Carbon Dioxide 25 mmol/L (21-32) 02/11/24 16:20 Anion Gap TNP 02/11/24 16:20 BUN 20 mg/dl (6-23) 02/11/24 16:20 Creatinine 0.85 mg/dl (0.6-1.2) 02/11/24 16:20 Est Cr Clr Drug Dosing 71.9 ml/min 02/11/24 16:20 eGFR 77.41 02/11/24 16:20 BUN/Creatinine Ratio 23.5 (10-20) H 02/11/24 16:20 Glucose 103 mg/dl (70-99(Fasting)) H 02/11/24 16:20 Calcium 10.5 mg/dl (8.6-10.3) H 02/11/24 16:20 Magnesium 1.9 mg/dl (1.7-2.4) 02/11/24 17:23 Total Bilirubin 0.5 mg/dl (0.2-1.0) 02/11/24 16:20 AST 19 U/L (13-39) 02/11/24 17:23 ALT 21 U/L (7-52) 02/11/24 16:20 Alkaline Phosphatase 82 U/L (34-104) 02/11/24 16:20 Troponin I High Sens 10.1 pg/ml (0-14) 02/11/24 16:20 Total Protein 7.8 gm/dl (6.0-8.3) 02/11/24 16:20 Albumin 4.7 gm/dl (3.4-5.0) 02/11/24 16:20 Globulin 3.1 gm/dl (2.5-4.0) 02/11/24 16:20 Albumin/Globulin Ratio 1.5 (0.9-2) 02/11/24 16:20 Lipase 25 U/L (11-82) 02/11/24 16:20 TSH 1.605 uIu/ml (0.300-4.500) 02/11/24 17:23 Urine Color Yellow 02/11/24 16:45 Urine Appearance Clear (Clear) 02/11/24 16:45 Urine pH 6.0 (4.5-7.5) 02/11/24 16:45 Ur Specific [place] 1.010 (1.000-1.030) 02/11/24 16:45 Urine Protein Negative (Negative) 02/11/24 16:45 Urine Glucose (UA) Negative (Negative) 02/11/24 16:45 Urine Ketones Trace (Negative) H 02/11/24 16:45 Urine Blood 2+ (Negative) H 02/11/24 16:45 Urine Nitrite Negative (Negative) 02/11/24 16:45 Urine Bilirubin Negative (Negative) 02/11/24 16:45 Urine Urobilinogen Negative (Negative) 02/11/24 16:45 Ur Leukocyte Esterase Negative (Negative) 02/11/24 16:45 Urine WBC (Auto) 0-5 /hpf (0-5) 02/11/24 16:45 Urine RBC (Auto) 3-5 /hpf (0-2) H 02/11/24 16:45 U Hyaline Cast (Auto) 0-2 /lpf (0-2) 02/11/24 16:45 U Epithel Cells (Auto) 0-2 /hpf (0-2) 02/11/24 16:45 Urine Bacteria (Auto) None Seen (None Seen) 02/11/24 16:45 Adenovirus (PCR) Not Detected (NotDetected) 02/11/24 17:28 Anaplasma Smear See Comment 02/11/24 17:23 Babesia Smear See Comment 02/11/24 17:23 B. pertussis DNA (PCR) Not Detected (NotDetected) 02/11/24 17:28 B.parapertussis DNA PCR Not Detected (NotDetected) 02/11/24 17:28 Lyme Disease Screen Negative (Negative) 02/11/24 17:23 C. pneumoniae DNA (PCR) Not Detected (NotDetected) 02/11/24 17:28 Coronavirus OC43 (PCR) Not Detected (NotDetected) 02/11/24 17:28 Coronavirus HKU1 (PCR) Not Detected (NotDetected) 02/11/24 17:28 Coronavirus 229E (PCR) Not Detected (NotDetected) 02/11/24 17:28 SARS-CoV-2 (PCR) Not Detected (NotDetected) 02/11/24 17:28 Coronavirus NL63 (PCR) Not Detected (NotDetected) 02/11/24 17:28 Human Metapneumovir PCR Not Detected (NotDetected) 02/11/24 17:28 Influenza Type A (PCR) Not Detected (NotDetected) 02/11/24 17:28 Influenza Type B (PCR) Not Detected (NotDetected) 02/11/24 17:28 M. pneumoniae (PCR) Not Detected (NotDetected) 02/11/24 17:28 Parainfluenza 1 (PCR) Not Detected (NotDetected) 02/11/24 17:28 Parainfluenza 2 (PCR) Not Detected (NotDetected) 02/11/24 17:28 Parainfluenza 3 (PCR) Not Detected (NotDetected) 02/11/24 17:28 Parainfluenza 4 (PCR) Not Detected (NotDetected) 02/11/24 17:28 RSV (PCR) Not Detected (NotDetected) 02/11/24 17:28 Entero/Rhino (PCR) Not Detected (NotDetected) 02/11/24 17:28 Blood Parasites ID Cancelled 02/11/24 16:20 Impressions Chest X-Ray 02/11/24 16:14 XR chest 1V portable HISTORY: 63 years-old Female Chest pain, nonspecific COMPARISON: 01/05/2013 TECHNIQUE: AP view of the chest FINDINGS: Cardiomediastinal and hilar silhouettes are unchanged. An electronic device projects over the left heart border. No pneumothorax, pleural effusion or airspace consolidation. Bones appear grossly intact. IMPRESSION: No acute process. ACT 112: Negative or not required by law. The above report was generated using voice recognition software. It may contain grammatical, syntax or spelling errors. Electronically signed by: Kuldip Mcclain M.D. 02/11/2024 4:30 PM Chest CTA 02/11/24 21:04 Exam(s): CTA CHEST IV Amt: 117ml optiray 320 EXAM: CT Angiography Chest With Intravenous Contrast CLINICAL HISTORY: Reason for exam: cp, sob, elevated D-dimer, r/o PE. TECHNIQUE: Axial computed tomographic angiography images of the chest with intravenous contrast. CTDI is 22.35 mGy and DLP is 716.27 mGy-cm. Automated exposure control was utilized for the study. A dose lowering technique was utilized adhering to the principles of ALARA. MIP reconstructed images were created and reviewed. COMPARISON: No relevant prior studies available. FINDINGS: Pulmonary arteries: Adequate pulmonary artery opacification. Normal caliber main pulmonary artery. No evidence of pulmonary embolism. Aorta: No acute findings. No aortic aneurysm or dissection. Lungs: Unremarkable. No mass. No consolidation. Pleural space: Unremarkable. No significant effusion. No pneumothorax. Heart: Unremarkable. No cardiomegaly. No significant pericardial effusion. Mediastinum: Small hiatal hernia. Bones/joints: No acute fracture. No dislocation. Soft tissues: Unremarkable. Lymph nodes: Unremarkable. No enlarged lymph nodes. Liver: Benign hepatic cyst. Tubes, lines and devices: Loop recorder implanted in the anterior left chest wall. IMPRESSION: No evidence of pulmonary embolism. Electronically signed by: Muna Ray M.D. 02/11/24 23:01 PM ECG Additional Comments: ECG. Sinus tachycardia rate of 109. Left ventricular hypertrophy with repolarization abnormality. QTc 456. Code Status & VTE Plan VTE Prophylaxis Plan VTE Prophylaxis will be ordered: Yes
[2024-02-12] MEDS ORDERED: NITROGLYCERIN SL 0.4 MG/TAB TAB SL PRN (03:05)
[2024-02-12] MEDS ORDERED: POLYETHYLENE (MIRALAX) 17 GM PACK PO PRN (03:05)
[2024-02-12] MEDS: LEVOTHYROXINE SODIUM 125 MCG TABLET PO SCH (06:18)
[2024-02-12 06:45] LABS: BUN Creatinine Ratio 20.8 (10-20); Calcium 9.4 mg/dl (8.6-10.3); Creatinine Clr Calc Pharmacy 83.6 ml/min; Magnesium 1.8 mg/dl (1.7-2.4); Potassium 3.6 mmol/L (3.5-5.1)
[2024-02-12 06:48] LABS: Basophils # (auto) 0.05 K/uL (0.00-0.20); Basophils % (auto) 0.7 %; Eosinophils # (auto) 0.08 K/uL (0.00-0.50); Hematocrit (blood only) 40.4 % (37.0-47.0); Immature Granulocytes # (auto) 0.03 K/uL (0.01-0.20); Immature Granulocytes % (auto) 0.4 %; Lymphocytes # (auto) 2.49 K/uL (1.20-3.40); Lymphocytes % (auto) 32.7 %; Mean Corpuscular Hemoglobin 27.1 pg (25.0-34.0); Mean Corpuscular Hgb Conc 32.2 g/dL (32.0-36.0); Mean Corpuscular Volume 84.3 fL (80.0-100.0); Mean Platelet Volume 9.2 fL (9.4-12.4); Monocytes # (auto) 0.61 K/uL (0.11-0.59); Neutrophils # (auto) 4.36 K/uL (1.40-6.50); Neutrophils % (auto) 57.2 %; Platelet Count 324 K/uL (130-400); RDW Coefficient of Variation 15.2 % (11.5-14.5); RDW Standard Deviation 46.2 fL (36.4-46.3); Red Blood Count 4.79 M/uL (4.20-5.40); White Blood Count 7.62 K/ul (4.8-10.8)
[2024-02-12 06:51] LABS: Troponin I High Sensitivity 13.7 pg/ml (0-14)
[2024-02-12] MEDS: MONTELUKAST SODIUM 10 MG TABLET PO SCH (07:59)
[2024-02-12] MEDS: FLUTICASONE/VILANTEROL 100/25MCG 14 PUFFS/INHALER INH SCH (08:00)
[2024-02-12] MEDS: VENLAFAXINE HCL XR 75 MG CAPXR PO SCH (08:00)
[2024-02-12] MEDS: CHOLECALCIFEROL 25 MCG (1000 UNITS) TAB PO SCH (08:01)
[2024-02-12] MEDS: DOCUSATE SODIUM SYRUP 100 MG/10 ML UDC PO SCH (08:01)
[2024-02-12] MEDS: PANTOprazole 40 MG TAB PO SCH (08:02)
[2024-02-12] MEDS: OXYBUTYNIN CHLORIDE XL 5 MG TABCR PO SCH (08:02)
[2024-02-12] MEDS: allopurinoL 300 MG TAB PO SCH (08:03)
[2024-02-12] MEDS: amLODIPine BESYLATE 5 MG TAB PO SCH (08:03)
[2024-02-12] MEDS: ATENOLOL 25 MG TABLET PO SCH (08:03)
--- OUTSIDE RECORDS SUMMARY | 2024-02-12 08:55 | External Medical Summary | Continuity of Care Document ---
Author Name Unknown Organization [facility] [address] [id number] Care Team Providers Care Head Counselor Name Role Phone Juan Sanford Primary Care Physician [phone] [facility] [id number] Date(s): 12/30/23 - 12/30/23 [facility] [address] [id number] Encounter Diagnosis Gastro-esophageal reflux disease with esophagitis, without bleeding(Final) - Diaphragmatic hernia without obstruction or gangrene(Final) - Essential (primary) hypertension(Final) - Other diseases of stomach and duodenum(Final) - Discharge Disposition: Home or Self Care Attending Physician: MD Garza Hadie Referring Physician: MD Greg, Amparo Allergies, Adverse Reactions, Alerts Substance Criticality Severity Reaction Reaction Severity Status Dilaudid nausea Active Immunizations Given and Recorded Vaccine Date Status Refusal Reason influenza virus vaccine, inactivated 01/24/17 Give n Medications allopurinol Start: 09/06/15 8:14:00 AM EDT, 300 mg =, Daily Start Date: 09/06/15 Status: Ordered amLODIPine 5 mg oral tablet Start: 08/31/18 11:23:00 AM EDT, 1 tab, PO, Daily Start Date: 08/31/18 Status: Ordered docusate Start: 09/06/15 8:13:00 AM EDT, 50 mg =, Daily, PRN: as needed for constipation Start Date: 09/06/15 Status: Ordered levothyroxine 100 mcg (0.1 mg) oral tablet Start: 12/20/16 8:59:00 AM EDT, 125 mcg =, PO, Daily Start Date: 12/20/16 Status: Ordered Linzess 72 mcg oral capsule Start: 03/25/23 1:42:00 PM EST, 1 cap, PO, Daily, Disp# 30 cap, Refills: 6, Pharmacy: [facility] Start Date: 03/25/23 Status: Ordered Liquid Vitamin D-3 Start: 03/25/23 1:05:00 PM EST Start Date: 03/25/23 Status: Ordered Lubricant Eye Drops Start: 09/06/15 8:19:00 AM EDT, 1 drop, tid Start Date: 09/06/15 Status: Ordered Leitchfield 5 mg-325 mg oral tablet Start: 01/27/17 8:24:00 AM EDT, 2 tab, PO, q4h, Disp# 60 tab, Refills: 0, PRN: Pain - Moderate Start Date: 01/27/17 Status: Ordered omeprazole 40 mg oral delayed release capsule Start: 12/30/23 2:29:00 PM EDT, 1 cap, PO, bid, Disp# 180 cap, Refills: 1, Pharmacy: [id number] Start Date: 12/30/23 Status: Ordered oxybutynin 10 mg/24 hr oral tablet, extended release Start: 01/15/17 1:08:00 PM EDT, 1 tab, PO, Daily Start Date: 01/15/17 Status: Ordered simvastatin Start: 09/06/15 8:13:00 AM EDT, 20 mg =, qhs Start Date: 09/06/15 Status: Ordered Singulair Start: 09/06/15 8:14:00 AM EDT, 10 mg =, PO, qhs Start Date: 09/06/15 Status: Ordered Tylenol Extra Strength 500 mg oral tablet Start: 01/15/17 1:11:00 PM EDT, 2 tab, PO, q6h, PRN: pain Start Date: 01/15/17 Status: Ordered venlafaxine 75 mg oral capsule, extended release Start: 01/15/17 1:09:00 PM EDT, 1 cap, PO, Daily Start Date: 01/15/17 Status: Ordered Ventolin HFA Start: 09/06/15 8:15:00 AM EDT, 2 puff, qid, PRN: as needed for wheezing Start Date: 09/06/15 Status: Ordered zolpidem Start: 09/06/15 8:13:00 AM EDT, 5 mg =, qhs, takes every night Start Date: 09/06/15 Status: Ordered Problem List Condition Confirmation Course Effective Dates Status Health St atus Informant Abdominal pain Confirmed Active 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 Active Esophagitis Confirmed Active Family history of Chnag syndrome Confirmed Active Preop testing Confirmed Active Weight disorder Confirmed Active Procedures Procedure Date Related Diagnosis Body Site Status bladder tuck Completed Both ovaries removal surgery Completed cervical decompression Co mpleted Cholecystectomy Completed Colonoscopy Completed Colonoscopy Completed Endoscopy Completed Kidney stones surgery x3 Completed lumbar decompression Comp leted Norman fundoplication Com pleted Partial hysterectomy Comp leted polyp removal duodenum Co mpleted TL - Tubal ligation Compl eted Tonsillectomy Completed Vital Signs Most recent to oldest [Reference Range]: 1 2 3 Patient Weight 84.5 kg (12/30/23 10:32 AM) Temperature [36.5-37.9 DegC] 36.4 DegC *LOW* (12/30/23 2:32 PM) 36.4 DegC *LOW* (12/30/23 2:31 PM) 36.1 DegC *LOW* (12/30/23 10:32 AM) Heart Rate 77 bpm (12/30/23 2:32 PM) 77 bpm (12/30/23 2:31 PM) 86 bpm (12/30/23 10:32 AM) Respiratory Rate 16 br/min (12/30/23 2:32 PM) 16 br/min (12/30/23 2:31 PM) 18 br/min (12/30/23 10:32 AM) Blood Pressure 142/80mmHg (12/30/23 2:32 PM) 142/80mmHg (12/30/23 2:31 PM) 119/78mmHg (12/30/23 10:32 AM) Mean Blood Pressure 92 mmHg (12/30/23 10:32 AM) Cuff Pulse Pressure 41 mmHg (12/30/23 10:32 AM) BP Location # 1 Left Arm (12/30/23 10:32 AM) Social History Social History Type Response Smoking Status Never smoked cigaret kath Sex Female Sex Representation Female (finding) Endoscopy study * MD Greg, Amparo: VERIFY, PERFORM Event Display: Endoscopy Authored Date: Please click on link to see image. Anes H&P * MD Dulce, Vladimir Hester: MODIFY, PERFORM, SIGN, VERIFY Event Display: Anes H&P Authored Date: [id number] Patient: MARIO OWENS Age: 63 years Sex: Female : 1960 Associated Diagnoses: None Author: MD Cardona Steven M Preoperative Information Pre-Operative Diagnosis: Duodenal Neoplasm . Anesthiesia Preop Info: Procedure: ESOPHAGOGASTRODUODENOSCOPY Date: 12/30/23 11:30 Surgeons: MD Garza Hadie Diagnosis: duodenal benign neoplasm, adenoma . Reference Report Created By: 12/30/2023 06:40:00, GEMA Santos Douglas C, By Chart review. 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 PMH: HTN, Mild Mitral Regurgitation, GERD, Hiatal Hernia, Woodard's Esophagus, Duodenal Adenoma, DVT, Vasovagal Syncope, RAD, Spinal stenosis Airway Records: [facility] Relevant Labs: None Medical History Medical Devices: Medical Devices: none . Health Status Allergies: Allergic Reactions (Selected) Severity Not Documented Dilaudid- Nausea.. Medications: Medication List (Selected) Prescriptions Prescribed Linzess 72 mcg oral capsule: 1 cap, PO, Daily, 30 cap, 6 Refill(s) Leitchfield 5 mg-325 mg oral tablet: 2 tab, PO, q4h, PRN: Pain - Moderate, 60 tab, 0 Refill(s) Protonix 40 mg oral delayed release tablet: 1 tab, PO, Daily, 60 tab, 6 Refill(s) Documented Medications Documented Liquid Vitamin D-3: Lubricant Eye Drops: 1 drop, tid Singulair: 10 mg, PO, qhs Tylenol Extra Strength 500 mg oral tablet: 2 tab, PO, q6h, PRN: pain Ventolin HFA: 2 puff, qid, PRN: as needed for wheezing allopurinol: 300 mg, Daily amLODIPine 5 mg oral tablet: 1 tab, PO, Daily docusate: 50 mg, Daily, PRN: as needed for constipation levothyroxine 100 mcg (0.1 mg) oral tablet: 125 mcg, PO, Daily oxybutynin 10 mg/24 hr oral tablet, extended release: 1 tab, PO, Daily simvastatin: 20 mg, qhs venlafaxine 75 mg oral capsule, extended release: 1 cap, PO, Daily zolpidem: 5 mg, qhs, takes every night. Histories Procedure History: Colonoscopy (115185826). Endoscopy (4314313131). Kidney stones surgery x3 ([id number]). polyp removal duodenum (53275). Norman fundoplication (845905946). cervical decompression (5735415472). lumbar decompression (8143350782). Partial hysterectomy (9664724386). bladder tuck (924934344). TL - Tubal ligation (693796172). Cholecystectomy (68117584). Both ovaries removal surgery (388139696). Tonsillectomy (137502459). Colonoscopy (439598854).. Social History: Cigarrette Smoker? Other Tobacco Use: Alcohol: Recreational Drugs: . Physical Examination VS/Measurements: Vital Signs 12/30/2023 10:32 EDT Temperature 36.1 DegC LOW Temperature Route Temporal Heart Rate 86 bpm Respiratory Rate 18 br/min Systolic Blood Pressure 119 mmHg Diastolic Blood Pressure 78 mmHg BP Location # 1 Left Arm BP Cuff Size Regular Mean Blood Pressure 92 mmHg Cuff Pulse Pressure 41 mmHg Oxygen Therapy Room Air SpO2 99 % Monitor Rhythm Normal sinus rhythm . Airway: Mallampati classification: II (soft palate, fauces, uvula visible). Mouth: Within normal limits, Teeth ( Within normal limits ). Respiratory: Lungs are clear to auscultation, Respirations are non-labored. Cardiovascular: Normal rate, Regular rhythm. Anesthesiologist Assessment and Plan Problems: No previous anesthetic complications. ASA Classification: Class II. Anesthetic Plan: Anesthetic technique discussed: General anesthesia. Risks discussed: Nausea-vomiting, Headache, Sore throat, Dental injury, Eye injury, Allergic reaction, Serious complications, Nerve damage, Aspiration. Informed consent: Signed by patient. History, Physical Exam, Assessment and Plan Completed: 12/30/2023 11:42:00, MD Dulce, Vladimir Nelson Electronic Signature on File Electronically Reviewed/Signed by: Vladimir Cardona MD Author Signature Dt/Tm:12/30/2023 11:42 AM Department of Anesthesia [facility] Patient Care team information Care Team Personnel Name: HALIE Carrera Ann Smith Position: Nurse Pract - Surgery Oncology Member Role: Lifetime Relationship Address: [address] [place] [id number] [place] Name: DO Sanford William J Position: Referring DIRECT Member Role: Primary Care Provider Address: [address] [place] [address] Name: Adina Lucas Jennifer Position: Pharmacist Member Role: Pharmacy - Lifetime Name: MD Kelly Ying Position: Physician - Pathologist Member Role: Lifetime Relationship Address: [address] [place] [id number] [place] Care Team Related Persons Name: JESSIKA WEBB Name: ROSANNA OWENS Name: LEONEL KERR
[2024-02-12] MEDS ORDERED: VENLAFAXINE HCL XR 75 MG CAPXR PO SCH (09:00)
[2024-02-12] MEDS: METOPROLOL SUCC 25MG EXT REL TAB PO SCH (11:10)
--- NOTE | 2024-02-12 11:25 | Cardiology Consultation ---
Date of Consultation February 12, 2024 Assessment & Plan (1) Chest pain: (2) Hot flashes: (3) Intermittent hypertension: (4) Sinus tachycardia: Plan 63-year-old female with complex history with limited records available from past testing but good historian. Intermittent chest pain and hypertension as well as tachycardia times several years. Recent ER evaluations at [facility] without evidence of myocardial ischemia by enzyme or EKG. Chest CT negative twice for pulmonary embolus focal abnormality Chest CT last night reviewed with demonstration of normal cardiac silhouette, normal aortic size, normal origin of coronary arteries with proximal vessels well-visualized without obstruction. Telemetry since admission demonstrates sinus and sinus tachycardia with minimal activity Catecholamine evaluation ordered in ER pending Impression: 1. Chest pain and shoulder pain. No evidence of myocardial ischemia despite sustained symptoms and elevated heart rates greater than 130 for extended periods of time. Normal troponin. No wall motion abnormalities on echocardiogram. No indications for stress testing currently given heart rate above target stress rate without ischemia Findings not suspicious for acute coronary syndrome. Will repeat EKG today 2. Elevated heart rate/sinus tachycardia: Indwelling loop recorder present but no recently noted arrhythmias per patient heart rates elevated on telemetry without precipitating cause. No pain, anemia, hypoxia. Thyroid function normal Blood pressures have been intermittently elevated. Agree with catecholamines as ordered. Will recommend increasing beta-sagar therapy with metoprolol succinate to 25 mg twice per day. Will discontinue atenolol Effexor/oxybutynin may be contributing to elevated heart rate History of Present Illness Reason for Consultation: Chest pain, tachycardia Requesting Physician: Christa hospitalist Attending Physician: Elliott Velez MD History of Present Illness Patient is a 63-year-old female referred for evaluation of left-sided chest pressure and right shoulder pain with elevated heart rate. Patient followed by [facility] cardiology [place] Dr. Foster per patient Recent symptoms of left-sided chest pressure and elevated heart rate. Evaluation [facility] ER over several days including CT scan of chest and head. No EKG or cardiac enzyme abnormalities per report Patient with persistent symptoms and sought further evaluation at [facility] Patient with prior evaluation for symptoms including negative heart catheterization 4 years ago. Stress testing in the last year and a half with stress nuclear imaging x 2 Patient has loop recorder indwelling since December 2022 without profound arrhythmia Telemetry today demonstrates sinus and sinus tachycardia Currently no chest pain or discomfort Does feel ache right shoulder with movement. No dizziness lightheadedness Denies fevers chills or unexplained infections. No bleeding difficulties. Appetite and weight are stable. No prior history of valvular heart disease, TIA or stroke. No syncope or near syncope. Hypertension longstanding issue Allergies Allergy/AdvReac Type Severity Reaction Status Date / Time No Known Allergies Allergy Unverified 11/27/20 15:32 Home Medications Medication Instructions Recorded Confirmed Type allopurinol 300 mg tablet 300 mg PO DAILY 02/12/24 02/12/24 History amlodipine 5 mg tablet 5 mg PO DAILY 02/12/24 02/12/24 History atenolol 25 mg tablet 25 mg PO DAILY 02/12/24 02/12/24 History cholecalciferol (vitamin D3) 50 50 mcg PO DAILY 02/12/24 02/12/24 History mcg (2,000 unit) tablet docusate sodium 50 mg capsule 50 mg PO BID 02/12/24 02/12/24 History hydrocodone 5 mg-acetaminophen 325 1 tab PO Q6H PRN Pain 02/12/24 02/12/24 History mg tablet levothyroxine 125 mcg tablet 125 mcg PO DAILY 02/12/24 02/12/24 History mometasone-formoterol HFA 100 2 puff inhalation BID 02/12/24 02/12/24 History mcg-5 mcg/actuation aerosol inhaler (Dulera) montelukast 10 mg tablet 10 mg PO DAILY 02/12/24 02/12/24 History oxybutynin chloride 10 mg 10 mg PO DAILY 02/12/24 02/12/24 History tablet,extended release 24 hr pantoprazole 40 mg tablet,delayed 40 mg PO DAILY 02/12/24 02/12/24 History release simvastatin 20 mg tablet 20 mg PO HS 02/12/24 02/12/24 History venlafaxine 75 mg capsule,extended 75 mg PO BID 02/12/24 02/12/24 History release 24 hr zolpidem 10 mg tablet 10 mg PO HS PRN Insomnia 02/12/24 02/12/24 History Patient History Social History Smoking Status: Never smoker Second Hand Exposure: No; Do You Dip or Chew Tobacco: No; Hx Alcohol Use: Yes Alcohol type: beer Hx Substance Use: No Preferred Language: Urdu Communication Ability: Effective Door To Door Lead Generation Required: No Beliefs That Will Affect Care: None Current Living Situation: Spouse Other Information That Helps Us Care for You: No Feels Safe at Home: Yes Safety Concerns: Feels Safe At This Time Assistive Devices: Cane, Glasses and Walker Review of Systems Review of Systems: All systems reviewed & are unremarkable except as noted in HPI & below Physical Exam Constitutional: WD/WN, vitals as above no acute distress Eyes: PERRL, conjunctivae normal, anicteric sclerae ENMT: external ear and nose normal, oropharynx normal Neck: trachea midline, no thyromegaly Thyroid: normal thyroid Respiratory: normal respiratory effort, lungs clear to auscultation Cardiovascular: Rate/Rhythm: regular rate and regular rhythm Heart Sounds: normal S1 and normal S2; no murmur Vessels: femoral pulses present and radial pulses present; no JVD, no carotid bruit and no abdominal aortic bruit Extremities: no edema Gastrointestinal (Abdomen): normal bowel sounds, soft, nontender, no hepatosplenomegaly Musculoskeletal: no cyanosis or clubbing, extremities motor strength 5/5 Results & Data Vital Signs (Past 12 Hours) Vital Signs Temp Pulse Pulse Resp BP BP Pulse Ox 02/12/24 11:08 36.7 C 77 16 123/80 94 02/12/24 07:51 88 02/12/24 07:46 36.7 C 94 H 17 146/84 H 93 02/12/24 02:53 36.4 C L 107 H 18 155/107 H 94 02/12/24 02:49 114 H 02/12/24 01:12 93 H 21 146/80 H 94 02/12/24 00:03 96 H O2 Del Method 02/12/24 11:08 Room Air 02/12/24 07:51 02/12/24 07:46 Room Air 02/12/24 02:53 Room Air 02/12/24 02:49 02/12/24 01:12 02/12/24 00:03 Laboratory Results Laboratory Results - last 24 hr 02/11/24 02/11/24 02/11/24 16:20 16:20 16:45 WBC Cancelled RBC Cancelled Hgb Cancelled Hct Cancelled MCV Cancelled MCH Cancelled MCHC Cancelled RDW Std Deviation Cancelled RDW Coeff of Anoop Cancelled Plt Count Cancelled MPV Cancelled Immature Gran % (Auto) Cancelled Neut % (Auto) Cancelled Lymph % (Auto) Cancelled [place] % (Auto) Cancelled Eos % (Auto) Cancelled Baso % (Auto) Cancelled Neut # (Auto) Cancelled Lymph # (Auto) Cancelled [place] # (Auto) Cancelled Eos # (Auto) Cancelled Baso # (Auto) Cancelled Immature Gran # (Auto) Cancelled Absolute Nucleated RBC Cancelled Nucleated RBC % (auto) Cancelled Neutrophils % (Manual) Cancelled Band Neutrophils % Cancelled Lymphocytes % (Manual) Cancelled Prolymphocyte % Cancelled Reactive Lymphs % (Man) Cancelled Monocytes % (Manual) Cancelled Eosinophils % (Manual) Cancelled Basophils % (Manual) Cancelled Metamyelocytes % (Man) Cancelled Myelocytes % (Man) Cancelled Promyelocytes % (Man) Cancelled Blast Cells % (Manual) Cancelled Plasma Cell % (Manual) Cancelled Other Cells % Cancelled Nucleated RBC % Cancelled Neutrophils # (Manual) Cancelled Band Neutrophils # Cancelled Total Absolute Neuts Cancelled Lymphocytes # (Manual) Cancelled Prolymphocyte # Cancelled Reactive Lymphs # Cancelled Total Abs Lymphocytes Cancelled Monocytes # (Manual) Cancelled Eosinophils # (Manual) Cancelled Basophils # (Manual) Cancelled Metamyelocytes # (Man) Cancelled Myelocytes # (Manual) Cancelled Promyelocytes # (Man) Cancelled Blast Cells # (Man) Cancelled Plasma Cell # (Manual) Cancelled Other Cells # Cancelled Nucleated RBCs # (Man) Cancelled Hypersegmented Neuts Cancelled Hyposegmented Neuts Cancelled Hypogranular Neuts Cancelled Large Granular Lymphs Cancelled # Lrg Granular Lymphs Cancelled Hairy Cells Cancelled Smudge Cells Cancelled Toxic Granulation Cancelled Toxic Vacuolation Cancelled Dohle Bodies Cancelled Dottie Rods Cancelled Platelet Estimate Cancelled Hypogranular Platelets Cancelled Giant Platelets Cancelled Platelet Satelliting Cancelled RBC Morphology Cancelled Polychromasia Cancelled Hypochromasia Cancelled Poikilocytosis Cancelled Basophilic Stippling Cancelled Anisocytosis Cancelled Microcytosis Cancelled Macrocytosis Cancelled Spherocytes Cancelled Pappenheimer Bodies Cancelled Sickle Cells Cancelled Target Cells Cancelled Tear Drop Cells Cancelled Ovalocytes Cancelled Stomatocytes Cancelled Avilez-Tenafly Bodies Cancelled Echinocytes Cancelled Acanthocytes (Spur) Cancelled Rouleaux Cancelled RBC Agglutinates Cancelled Schistocytes Cancelled Sezary Cell Cancelled PT Cancelled INR Cancelled D-Dimer Cancelled Cancelled Sodium TNP Potassium TNP Chloride 101 Carbon Dioxide 25 Anion Gap TNP BUN 20 Creatinine 0.85 Est Cr Clr Drug Dosing 71.9 eGFR 77.41 BUN/Creatinine Ratio 23.5 H Glucose 103 H Calcium 10.5 H Magnesium TNP Total Bilirubin 0.5 AST TNP ALT 21 Alkaline Phosphatase 82 Troponin I High Sens 10.1 Total Protein 7.8 Albumin 4.7 Globulin 3.1 Albumin/Globulin Ratio 1.5 Lipase 25 TSH Cancelled Plasma Metanephrine Plasma Normetanephrine Plas Total Metaneph Urine Color Yellow Urine Appearance Clear Urine pH 6.0 Ur Specific [place] 1.010 Urine Protein Negative Urine Glucose (UA) Negative Urine Ketones Trace H Urine Blood 2+ H Urine Nitrite Negative Urine Bilirubin Negative Urine Urobilinogen Negative Ur Leukocyte Esterase Negative Urine WBC (Auto) 0-5 Urine RBC (Auto) 3-5 H U Hyaline Cast (Auto) 0-2 U Epithel Cells (Auto) 0-2 Urine Bacteria (Auto) None Seen Ur [place] Metanephrines Pending U Normetanephrine Pending U Total Metanephrines Pending Urine Creatinine Pending Adenovirus (PCR) Anaplasma Smear Cancelled A. phagocytophilum DNA Babesia Smear Cancelled Babesia microti DNA PCR B. pertussis DNA (PCR) B.parapertussis DNA PCR Lyme Disease Screen C. pneumoniae DNA (PCR) Coronavirus OC43 (PCR) Coronavirus HKU1 (PCR) Coronavirus 229E (PCR) SARS-CoV-2 (PCR) Coronavirus NL63 (PCR) Ehrlichia DNA (PCR) Human Metapneumovir PCR Influenza Type A (PCR) Influenza Type B (PCR) M. pneumoniae (PCR) Parainfluenza 1 (PCR) Parainfluenza 2 (PCR) Parainfluenza 3 (PCR) Parainfluenza 4 (PCR) Q Fever Phase I IgG Ab Q Fever Phase I IgM Ab Q Fever Phase II IgG Ab Q Fever Phase II IgM Ab RSV (PCR) Entero/Rhino (PCR) Rickettsia IgG Ab Rickettsia IgM Ab Typhus Fever IgG Ab Typhus Fever IgM Ab Blood Parasites ID Cancelled 02/11/24 02/11/24 02/11/24 17:23 17:28 20:15 WBC 11.15 H RBC 5.25 Hgb 14.4 Hct 45.0 MCV 85.7 MCH 27.4 MCHC 32.0 RDW Std Deviation 48.4 H RDW Coeff of Anoop 15.5 H Plt Count 333 MPV 9.4 Immature Gran % (Auto) 0.4 Neut % (Auto) 65.6 Lymph % (Auto) 25.3 [place] % (Auto) 7.4 Eos % (Auto) 0.6 Baso % (Auto) 0.7 Neut # (Auto) 7.32 H Lymph # (Auto) 2.82 [place] # (Auto) 0.82 H Eos # (Auto) 0.07 Baso # (Auto) 0.08 Immature Gran # (Auto) 0.04 Absolute Nucleated RBC Nucleated RBC % (auto) Neutrophils % (Manual) Band Neutrophils % Lymphocytes % (Manual) Prolymphocyte % Reactive Lymphs % (Man) Monocytes % (Manual) Eosinophils % (Manual) Basophils % (Manual) Metamyelocytes % (Man) Myelocytes % (Man) Promyelocytes % (Man) Blast Cells % (Manual) Plasma Cell % (Manual) Other Cells % Nucleated RBC % Neutrophils # (Manual) Band Neutrophils # Total Absolute Neuts Lymphocytes # (Manual) Prolymphocyte # Reactive Lymphs # Total Abs Lymphocytes Monocytes # (Manual) Eosinophils # (Manual) Basophils # (Manual) Metamyelocytes # (Man) Myelocytes # (Manual) Promyelocytes # (Man) Blast Cells # (Man) Plasma Cell # (Manual) Other Cells # Nucleated RBCs # (Man) Hypersegmented Neuts Hyposegmented Neuts Hypogranular Neuts Large Granular Lymphs # Lrg Granular Lymphs Hairy Cells Smudge Cells Toxic Granulation Toxic Vacuolation Dohle Bodies Dottie Rods Platelet Estimate Hypogranular Platelets Giant Platelets Platelet Satelliting RBC Morphology Polychromasia Hypochromasia Poikilocytosis Basophilic Stippling Anisocytosis Microcytosis Macrocytosis Spherocytes Pappenheimer Bodies Sickle Cells Target Cells Tear Drop Cells Ovalocytes Stomatocytes Avilez-Tenafly Bodies Echinocytes Acanthocytes (Spur) Rouleaux RBC Agglutinates Schistocytes Sezary Cell PT 9.8 INR 0.9 D-Dimer 790 H* Sodium 139 Potassium 3.5 Chloride Carbon Dioxide Anion Gap BUN Creatinine Est Cr Clr Drug Dosing eGFR BUN/Creatinine Ratio Glucose Calcium Magnesium 1.9 Total Bilirubin AST 19 ALT Alkaline Phosphatase Troponin I High Sens Total Protein Albumin Globulin Albumin/Globulin Ratio Lipase TSH 1.605 Plasma Metanephrine Plasma Normetanephrine Plas Total Metaneph Urine Color Urine Appearance Urine pH Ur Specific [place] Urine Protein Urine Glucose (UA) Urine Ketones Urine Blood Urine Nitrite Urine Bilirubin Urine Urobilinogen Ur Leukocyte Esterase Urine WBC (Auto) Urine RBC (Auto) U Hyaline Cast (Auto) U Epithel Cells (Auto) Urine Bacteria (Auto) Ur [place] Metanephrines U Normetanephrine U Total Metanephrines Urine Creatinine Adenovirus (PCR) Not Detected Anaplasma Smear See Comment A. phagocytophilum DNA Pending Babesia Smear See Comment Babesia microti DNA PCR Pending B. pertussis DNA (PCR) Not Detected B.parapertussis DNA PCR Not Detected Lyme Disease Screen Negative C. pneumoniae DNA (PCR) Not Detected Coronavirus OC43 (PCR) Not Detected Coronavirus HKU1 (PCR) Not Detected Coronavirus 229E (PCR) Not Detected SARS-CoV-2 (PCR) Not Detected Coronavirus NL63 (PCR) Not Detected Ehrlichia DNA (PCR) Pending Human Metapneumovir PCR Not Detected Influenza Type A (PCR) Not Detected Influenza Type B (PCR) Not Detected M. pneumoniae (PCR) Not Detected Parainfluenza 1 (PCR) Not Detected Parainfluenza 2 (PCR) Not Detected Parainfluenza 3 (PCR) Not Detected Parainfluenza 4 (PCR) Not Detected Q Fever Phase I IgG Ab Pending Q Fever Phase I IgM Ab Pending Q Fever Phase II IgG Ab Pending Q Fever Phase II IgM Ab Pending RSV (PCR) Not Detected Entero/Rhino (PCR) Not Detected Rickettsia IgG Ab Pending Rickettsia IgM Ab Pending Typhus Fever IgG Ab Pending Typhus Fever IgM Ab Pending Blood Parasites ID 02/12/24 02/12/24 06:04 10:50 WBC 7.62 RBC 4.79 Hgb 13.0 Hct 40.4 MCV 84.3 MCH 27.1 MCHC 32.2 RDW Std Deviation 46.2 RDW Coeff of Anoop 15.2 H Plt Count 324 MPV 9.2 L Immature Gran % (Auto) 0.4 Neut % (Auto) 57.2 Lymph % (Auto) 32.7 [place] % (Auto) 8.0 Eos % (Auto) 1.0 Baso % (Auto) 0.7 Neut # (Auto) 4.36 Lymph # (Auto) 2.49 [place] # (Auto) 0.61 H Eos # (Auto) 0.08 Baso # (Auto) 0.05 Immature Gran # (Auto) 0.03 Absolute Nucleated RBC Nucleated RBC % (auto) Neutrophils % (Manual) Band Neutrophils % Lymphocytes % (Manual) Prolymphocyte % Reactive Lymphs % (Man) Monocytes % (Manual) Eosinophils % (Manual) Basophils % (Manual) Metamyelocytes % (Man) Myelocytes % (Man) Promyelocytes % (Man) Blast Cells % (Manual) Plasma Cell % (Manual) Other Cells % Nucleated RBC % Neutrophils # (Manual) Band Neutrophils # Total Absolute Neuts Lymphocytes # (Manual) Prolymphocyte # Reactive Lymphs # Total Abs Lymphocytes Monocytes # (Manual) Eosinophils # (Manual) Basophils # (Manual) Metamyelocytes # (Man) Myelocytes # (Manual) Promyelocytes # (Man) Blast Cells # (Man) Plasma Cell # (Manual) Other Cells # Nucleated RBCs # (Man) Hypersegmented Neuts Hyposegmented Neuts Hypogranular Neuts Large Granular Lymphs # Lrg Granular Lymphs Hairy Cells Smudge Cells Toxic Granulation Toxic Vacuolation Dohle Bodies Dottie Rods Platelet Estimate Hypogranular Platelets Giant Platelets Platelet Satelliting RBC Morphology Polychromasia Hypochromasia Poikilocytosis Basophilic Stippling Anisocytosis Microcytosis Macrocytosis Spherocytes Pappenheimer Bodies Sickle Cells Target Cells Tear Drop Cells Ovalocytes Stomatocytes Avilez-Tenafly Bodies Echinocytes Acanthocytes (Spur) Rouleaux RBC Agglutinates Schistocytes Sezary Cell PT INR D-Dimer Sodium 139 Potassium 3.6 Chloride 103 Carbon Dioxide 24 Anion Gap 12 H BUN 15 Creatinine 0.72 Est Cr Clr Drug Dosing 83.6 eGFR 94.48 BUN/Creatinine Ratio 20.8 H Glucose 106 H Calcium 9.4 Magnesium 1.8 Total Bilirubin AST ALT Alkaline Phosphatase Troponin I High Sens 13.7 13.3 Total Protein Albumin Globulin Albumin/Globulin Ratio Lipase TSH Plasma Metanephrine Pending Plasma Normetanephrine Pending Plas Total Metaneph Pending Urine Color Urine Appearance Urine pH Ur Specific [place] Urine Protein Urine Glucose (UA) Urine Ketones Urine Blood Urine Nitrite Urine Bilirubin Urine Urobilinogen Ur Leukocyte Esterase Urine WBC (Auto) Urine RBC (Auto) U Hyaline Cast (Auto) U Epithel Cells (Auto) Urine Bacteria (Auto) Ur [place] Metanephrines U Normetanephrine U Total Metanephrines Urine Creatinine Adenovirus (PCR) Anaplasma Smear A. phagocytophilum DNA Babesia Smear Babesia microti DNA PCR B. pertussis DNA (PCR) B.parapertussis DNA PCR Lyme Disease Screen C. pneumoniae DNA (PCR) Coronavirus OC43 (PCR) Coronavirus HKU1 (PCR) Coronavirus 229E (PCR) SARS-CoV-2 (PCR) Coronavirus NL63 (PCR) Ehrlichia DNA (PCR) Human Metapneumovir PCR Influenza Type A (PCR) Influenza Type B (PCR) M. pneumoniae (PCR) Parainfluenza 1 (PCR) Parainfluenza 2 (PCR) Parainfluenza 3 (PCR) Parainfluenza 4 (PCR) Q Fever Phase I IgG Ab Q Fever Phase I IgM Ab Q Fever Phase II IgG Ab Q Fever Phase II IgM Ab RSV (PCR) Entero/Rhino (PCR) Rickettsia IgG Ab Rickettsia IgM Ab Typhus Fever IgG Ab Typhus Fever IgM Ab Blood Parasites ID Diagnostic Findings Echocardiogram 02/12/2024 Left ventricle is normal in size. There is moderate concentric left ventricular productivity with basal septal thickening. No left ventricular outflow tract obstruction Left ventricular wall motion is normal EF 60-65% Grade 1 diastolic dysfunction No significant valvular disease (1) Chest pain Chest pain type: unspecified Qualified Code(s): R07.9 - Chest pain, unspecified
[2024-02-12] MEDS: ACETAMINOPHEN 325 MG TAB PO PRN (14:08)
[2024-02-12] MEDS ORDERED: PROMETHAZINE 6.25 MG/50.25 ML BAG IV PRN (17:18)
[2024-02-12] MEDS: SIMVASTATIN 20 MG TAB PO SCH (21:04)
[2024-02-12] MEDS: ZOLPIDEM TARTRATE 5 MG TAB PO PRN (22:58)
[2024-02-13 06:23] LABS: Hematocrit (blood only) 40.5 % (37.0-47.0); Hemoglobin 13.1 g/dl (12.0-16.0); Mean Corpuscular Hemoglobin 27.3 pg (25.0-34.0); Mean Corpuscular Hgb Conc 32.3 g/dL (32.0-36.0); Mean Corpuscular Volume 84.6 fL (80.0-100.0); Mean Platelet Volume 9.1 fL (9.4-12.4); Platelet Count 321 K/uL (130-400); RDW Coefficient of Variation 15.4 % (11.5-14.5); RDW Standard Deviation 47.6 fL (36.4-46.3); Red Blood Count 4.79 M/uL (4.20-5.40); White Blood Count 6.22 K/ul (4.8-10.8)
[2024-02-13 06:48] LABS: BUN Creatinine Ratio 31.4 (10-20); Calcium 9.3 mg/dl (8.6-10.3); Creatinine Clr Calc Pharmacy 69.4 ml/min; Magnesium 1.8 mg/dl (1.7-2.4)
--- NOTE | 2024-02-13 11:05 | Cardiology Progress Note ---
Date of Service February 13, 2024 Assessment & Plan (1) Chest pain: (2) Hot flashes: (3) Intermittent hypertension: (4) Sinus tachycardia: Plan 63-year-old female with complex history with limited records available from past testing but good historian. Intermittent chest pain and hypertension as well as tachycardia times several years. Recent ER evaluations at [facility] without evidence of myocardial ischemia by enzyme or EKG. Chest CT negative twice for pulmonary embolus focal abnormality Chest CT last night reviewed with demonstration of normal cardiac silhouette, normal aortic size, normal origin of coronary arteries with proximal vessels well-visualized without obstruction. Telemetry since admission demonstrates sinus and sinus tachycardia with minimal activity Catecholamine evaluation ordered in ER pending Impression: 1. Chest pain and shoulder pain. No evidence of myocardial ischemia despite sustained symptoms and elevated heart rates greater than 130 for extended periods of time. Normal troponin. No wall motion abnormalities on echoc ardiogram. No indications for stress testing currently given heart rate above target stress rate without ischemia Findings not suspicious for acute coronary syndrome. Will repeat EKG today 2. Elevated heart rate/sinus tachycardia: Indwelling loop recorder present but no recently noted arrhythmias per patient heart rates elevated on telemetry without precipitating cause. No pain, anemia, hypoxia. Thyroid function normal Blood pressures have been intermittently elevated. Agree with catecholamines as ordered. Will recommend increasing beta-sagar therapy with metoprolol succinate to 25 mg twice per day. Will discontinue atenolol Effexor/oxybutynin may be contributing to elevated heart rate 02/13/2024 Symptoms of chest pain and pressure have improved however with new EKG abnormalities anterior precordial leads Heart rate and blood pressure better controlled Discussed findings in detail given multiple medical care facility presentations recently and sustained chest discomfort with abnormal EKG will refer for diagnostic coronary angiography. Patient to be kept n.p.o. with procedure to perform later today Admission and Anticipated Discharge Date Admission Date: February 12, 2024 Subjective Patient seen and examined, chart, medications, telemetry reviewed Feels improved this morning. Heart rates better controlled. No further diaphoresis. Transient bradycardia last night not significantly symptomatic [place] "woozy No chest pains or discomfort this morning. No fevers or chills. EKG however with due to deep T wave inversion anterior precordial leads Physical Exam Constitutional: WD/WN, vitals as above no acute distress Eyes: PERRL, conjunctivae normal, anicteric sclerae ENMT: external ear and nose normal, oropharynx normal Neck: trachea midline, no thyromegaly Thyroid: normal thyroid Respiratory: normal respiratory effort, lungs clear to auscultation Cardiovascular: Rate/Rhythm: regular rate and regular rhythm Heart Sounds: normal S1 and normal S2; no murmur Vessels: femoral pulses present and radial pulses present; no JVD, no carotid bruit and no abdominal aortic bruit Extremities: no edema Gastrointestinal (Abdomen): normal bowel sounds, soft, nontender, no hepatosplenomegaly Musculoskeletal: no cyanosis or clubbing, extremities motor strength 5/5 Results & Data Vital Signs (Past 12 Hours) Vital Signs Temp Pulse Pulse Resp BP Pulse Ox O2 Del Method 02/13/24 08:00 36.3 C L 76 18 113/92 97 Room Air 02/13/24 07:37 87 02/13/24 03:05 36.6 C 63 15 102/64 96 Room Air Laboratory Results Laboratory Results - last 24 hr 02/12/24 02/12/24 02/13/24 10:50 17:04 05:30 WBC 6.22 RBC 4.79 Hgb 13.1 Hct 40.5 MCV 84.6 MCH 27.3 MCHC 32.3 RDW Std Deviation 47.6 H RDW Coeff of Anoop 15.4 H Plt Count 321 MPV 9.1 L Sodium 137 Potassium 4.0 Chloride 104 Carbon Dioxide 25 Anion Gap 8 BUN 27 H Creatinine 0.86 Est Cr Clr Drug Dosing 69.4 eGFR 76.33 BUN/Creatinine Ratio 31.4 H Glucose 101 H Calcium 9.3 Phosphorus 4.0 Magnesium 1.8 Troponin I High Sens 13.3 11.9 (1) Chest pain Chest pain type: unspecified Qualified Code(s): R07.9 - Chest pain, unspecified
--- NOTE | 2024-02-13 14:41 | Pre Anesthesia Assessment ---
Date of Service February 13, 2024 Pre Sedation Assessment Vital Signs Temp Pulse Pulse Resp BP Pulse Ox O2 Del Method 02/13/24 12:01 98.1 F 83 18 90/53 L 90 Room Air 02/13/24 08:00 97.3 F L 76 18 113/92 97 Room Air 02/13/24 07:37 87 02/13/24 03:05 97.9 F 63 15 102/64 96 Room Air 02/12/24 22:56 97.9 F 70 16 116/76 95 Room Air 02/12/24 21:50 56 L 02/12/24 19:45 98.1 F 70 18 115/76 94 Room Air 02/12/24 15:29 97.5 F L 78 18 106/70 92 Room Air 02/12/24 15:13 69 Cardiovascular + regular rate Respiratory + respiratory effort normal Pre-Sedation Airway Assessment Smoking Status: Never smoker Hx Sleep Apnea: Yes Hx Difficult Intubation: No Short, Thick Neck: Yes Thyromental Distance: > or= 3.5 Finger Breadths Oral Cavity: + Dental Abnormalities Mallampati Class: III ASA: ASA3 Procedure Planning Contraindications for Sedation: none Current Medications Reviewed: Yes Notes The planned sedation has been discussed with the patient. Informed Consent was obtained. I have identified the patient, determined the appropriateness of sedation and have assessed the patient immediately prior to the procedure. All medicine(s) and interventions are by my order.
--- NOTE | 2024-02-13 15:09 | Post Anesthesia Assessment ---
Date of Service February 13, 2024 Post Sedation Assessment Vital Signs Temp Pulse Pulse Resp BP Pulse Ox O2 Del Method 02/13/24 12:01 98.1 F 83 18 90/53 L 90 Room Air 02/13/24 08:00 97.3 F L 76 18 113/92 97 Room Air 02/13/24 07:37 87 02/13/24 03:05 97.9 F 63 15 102/64 96 Room Air 02/12/24 22:56 97.9 F 70 16 116/76 95 Room Air 02/12/24 21:50 56 L 02/12/24 19:45 98.1 F 70 18 115/76 94 Room Air 02/12/24 15:29 97.5 F L 78 18 106/70 92 Room Air 02/12/24 15:13 69 Recovery Score Activity: Moves 4 extremities Respiration: Deep Breath/Cough Circulation: +/-20% PreAnes Value Consciousness: Fully Awake Oxygen Saturation: O2 needed for >90% Discharge Sedation Level of Care: Fast Track Phase II Post Sedation Plan On clinical assessment, the patient appears to have tolerated the sedation without complications. Patient is recovering as anticipated. Patient will continue to be monitored by nursing and may be discharged when sedation discharge criteria are met per below protocol. Upon Completions of procedure up to 15 minutes continue every 5 minute vital signs and the P.A.R. score; then discharge to a Phase I or Fast Track to Phase I I per the following guidelines: * Discharge Patient to appropriate Phase II area if PAR is 8 or greater or return to pre- procedure baseline. The post - procedure orders will be as directed. * If PAR score is less than 8 or not return to pre-procedure baseline then patient will follow Phase I monitoring till PAR is reached for Phase II. The Phase I may be done in procedure room or may call to secure a Phase I area. * If naloxone or flumazenil are used for reversal, hold in Phase I for continued monitoring from when last reversal dose was given for a minimum of 60 minutes or longer pending the nurse and/or physician discretion of patient condition before discharge to Phase II. Please call the Sedation Physician to re-evaluate and complete post-note for discharge to Phase II area. Do NOT discharge from procedure sedation or Phase 1 until post- sedation evaluation note is complete by procedure /sedation MD Sedation Discharge Instructions to be given to the patient at discharge to home.
--- NOTE | 2024-02-13 15:16 | Cardiac Catheterization ---
[facility] Data: In Process Inspector Cardiac Status Clinical evaluation leading to the procedure CAD Presenation: Unstable angina Anginal Classification: CCS IV Diagnostic Physicians Name: Cas Santos MD Closure Device Recommendations: Medical Therapy and/or Counseling Cardiac Cath Procedure Full Procedure Date February 13, 2024 Pre-Procedure Diagnosis Pre-Procedure Diagnosis: Angina AUC Score AUC Score: 7 Post-Procedure Diagnosis Post-Procedure Diagnosis: Mild CAD and Normal Intracardiac Pressures Procedure(s) Performed Procedure(s) Performed: Coronary Angiography and Left Heart Cath Life Coach Cas Santos MD Risk Management Specialist(s) Anamibler Estimated Blood Loss Estimated Blood Loss: 10 Medication(s) Medication(s): Fentanyl, Heparin, Lidocaine 1%, Nicardipine, Nitroglycerin and Versed Summary of Findings Indication: Suspected unstable angina Access: 6 Fr slender right radial artery Catheters: [place] Findings: LM -dominant, large caliber, no significant disease LAD -large caliber, sluggish flow, distal vessel extends to apex. Gives off very small diagonals. Circumflex -small, luminal irregularities, no significant disease. Ramus medium caliber, no significant disease. RCA -dominant, large caliber vessel, no significant disease. Gives off small PDA and 2 RPLB's without significant disease. LVEDP -11 With initial nitroglycerin/nicardipine diaphoretic, hypotensive to systolic pressure of 50s. BP responded to bolus phenylephrine. Arterial Closure: TR band Summary: 1. No significant epicardial coronary artery disease 2. Sluggish (NILSA II) coronary artery flow in the setting of hypotension, cannot rule out microvascular dysfunction 3. Normal intracardiac filling pressure Recommendations: Continued ASCVD risk factor modification per Dr. Angel. Hemodynamics Rest Ao:: 82/49/64 Final Ao: 87/42/61 LV: 90/11 Recommendations Recommendations: Medical Therapy and/or Counseling Specimens Specimens: None Radiation Exposure (mGy) 746 Contrast (mls) 35 Anesthesia Moderate [id number] Procedural Complication(s) None Disposition PCU I attest to the content of the Intraoperative Record and any orders documented therein. Any exceptions are noted below. [facility] Card Cath Procedure Codes Cardiac Catheterization Procedure 1: Cardiovascular Cath Procedures: 08125 Coronaries and LHC (+/-LV) Moderate Sedation Procedure 1: Sedation/Anesthesia: 35362 Mod Sedation by the same physician;Init15 Min Child Age 5 & Up PG Care Time/CCT Total # of Minutes Spent Total Time Spent with Patient: Total time spent is greater than 50% in coordination of care (as documented) at patient's floor/unit and/or counseling patient:
[2024-02-13] MEDS: fentaNYL citrate PF 100 MCG/2 ML VIAL ONE (15:17)
[2024-02-13] MEDS: MIDAZOLAM HCL 1 MG/ML 2ML VIAL ONE (15:18)
[2024-02-13] MEDS: HEPARIN (PORCINE) 1000 UNIT/ML 10 ML (CATH LAB USE ONLY) ONE (15:18)
[2024-02-13] MEDS: niCARdipine HCL INJ 2.5 MG/ML 10 ML AMP ONE (15:18)
[2024-02-13] MEDS: NITROGLYCERIN/D5W 100MCG/ML 20ML SYR ONE (15:19)
[2024-02-13] MEDS: OPTIRAY 350 ONE (15:19)
[2024-02-13] MEDS: PHENYLEPHRINE 100MCG/ML 5ML SYR ONE (15:20)
--- NOTE | 2024-02-13 16:54 | Hospitalist Progress Note ---
Date of Service February 13, 2024 Assessment & Plan (1) Chest pain: Plan: 63-year-old female with past medical history significant for hypertension, asthma, diverticulitis, sepsis and UTI, kidney stones, hypothyroidism, Woodard's esophagus, chronic back pain, duodenal tumor benign as per patient presents with chest pain and palpitations. Patient states since last Friday she is having left-sided chest heaviness on and off and also noticed left arm numbness about 3 times since last Friday. The pain comes on its own, lasts for short period time and goes away. She went to [facility] on Friday and Friday and workup with CT chest and CT head were unremarkable per patient. Seems her slip bridge operator asked her to come to our hospital. Patient states she is having flushing and headaches and palpitations going on for some time. Patient states that when she leans forward her heart rate goes up. She is followed with cardiology. Says she has a loop recorder placed on December 2022 and so far no abnormal readings as per patient. She says she had cardiac cath about 4 years ago and it was unremarkable. And she had stress test about 1 and half years ago and was okay per patient . Having headaches on and off. Has some neck pain. Has chronic back pain. Last couple of days feeling dizzy and nauseous and diarrhea. Currently afebrile. Vision is okay. No earache. No runny nose or sore throat. No cough. Appetite is okay. No abdominal pain. No blood in the stools. Micturating okay. In the ER she had episode of tachycardia and a high blood pressure. Chest pains and palpitations Sinus tachycardia Intermittent hypertension On and off Flushing and sweating Initial ACS workup okay followed serial enzymes and repeated EKG and echo Monitoring telemetry Random urine metanephrines sent by ER plasma metanephrines -pending D-dimer is elevated but CTA chest begat. for PE Labs okay. Calcium 10.5 we will follow repeat labs Lyme screen and Anaplasma and Babesia screen negative Cardiology consulted for further recommendations 1. Chest pain and shoulder pain. No evidence of myocardial ischemia despite sustained symptoms and elevated heart rates greater than 130 for extended periods of time. Normal troponin. No wall motion abnormalities on echocardiogram. No indications for stress testing currently given heart rate above target stress rate without ischemia Findings not suspicious for acute coronary syndrome. Repeat EKG. 2. Elevated heart rate/sinus tachycardia: Indwelling loop recorder present but no recently noted arrhythmias per patient heart rates elevated on telemetry without precipitating cause. No pain, anemia, hypoxia. Thyroid function normal Blood pressures have been intermittently elevated. Agree with catecholamines as ordered. Will recommend increasing beta-sagar therapy with metoprolol succinate to 25 mg twice per day. Will discontinue atenolol Effexor/oxybutynin may be contributing to elevated heart rate 02/13/2024 Symptoms of chest pain and pressure have improved however with new EKG abnormalities anterior precordial leads Heart rate and blood pressure better controlled Discussed findings in detail given multiple medical care facility presentations recently and sustained chest discomfort with abnormal EKG will refer for diagnostic coronary angiography. Patient referred and underwent coronary angiography due to presenting symptoms chest pain and abnormal EKG (02/13/24) Study demonstrated normal coronary angiography without obstruction Patient tolerating increased beta-sagar dosing Will continue metoprolol succinate 25 mg twice per day Asthma Continue home inhalers Hypothyroidism Continue home Synthyroid TSH 1.6 Chronic back pain Continue home pain medications as needed Hyperlipidemia On statin Woodard's esophagus On Protonix Admission and Anticipated Discharge Date Admission Date: February 12, 2024 Subjective Pt seen in follow up of chest pains, palpitations Seen by cardiology and medications adjusted Today also underwent cardiac cath Currently sitting up in chair, in NAD, eating Denies any more palpitations, plan to likely DC tmrw AM Review of Systems Review of Systems: All systems reviewed & are unremarkable except as noted in Subjective Physical Exam Physical Exam: General- Not in distress Head- atraumatic Eyes- PERRL. ENT- oropharynx clear Neck- supple, no JVD. Lungs- clear to auscultation no wheezing or crackles Heart- regular rate and rhythm; no murmur, no gallop. Abdomen- normal bowel sounds, soft, nontender, no distension Extremities- no pretibial edema, no erythema seen Neuro- alert, oriented PERRL, no facial palsy; no dysarthria; moves extremities Results & Data Results & Data Vital Signs (Past 12 Hours) Vital Signs Temp Pulse Pulse Resp BP Pulse Ox O2 Del Method 02/13/24 16:30 83 20 106/63 94 Room Air 02/13/24 16:12 68 20 113/73 95 Room Air 02/13/24 15:53 36.4 C L 70 20 123/81 92 Room Air 02/13/24 15:30 51 L 14 147/65 H 92 Room Air 02/13/24 15:19 57 L 14 121/70 92 Room Air 02/13/24 15:09 74 02/13/24 12:01 36.7 C 83 18 90/53 L 90 Room Air 02/13/24 08:00 36.3 C L 76 18 113/92 97 Room Air 02/13/24 07:37 87 Laboratory Results 02/13/24 02/12/24 Range/Units 05:30 17:04 WBC 6.22 (4.8-10.8) K/ul RBC 4.79 (4.20-5.40) M/uL Hgb 13.1 (12.0-16.0) g/dl Hct 40.5 (37.0-47.0) % MCV 84.6 (80.0-100.0) fL MCH 27.3 (25.0-34.0) pg MCHC 32.3 (32.0-36.0) g/dL RDW Std Deviation 47.6 H (36.4-46.3) fL RDW Coeff of Anoop 15.4 H (11.5-14.5) % Plt Count 321 (130-400) K/uL MPV 9.1 L (9.4-12.4) fL Sodium 137 (136-145) mmol/L Potassium 4.0 (3.5-5.1) mmol/L Chloride 104 (98-107) mmol/L Carbon Dioxide 25 (21-32) mmol/L Anion Gap 8 (3-11) BUN 27 H (6-23) mg/dl Creatinine 0.86 (0.6-1.2) mg/dl Est Cr Clr Drug Dosing 69.4 ml/min eGFR 76.33 BUN/Creatinine Ratio 31.4 H (10-20) Glucose 101 H (70-99(Fasting)) mg/dl Calcium 9.3 (8.6-10.3) mg/dl Phosphorus 4.0 (2.5-4.9) mg/dl Magnesium 1.8 (1.7-2.4) mg/dl Troponin I High Sens 11.9 (0-14) pg/ml Medications Administered Current Inpatient Medications Acetaminophen (Acetaminophen 325 Mg Tab) 650 mg PO Q4H PRN PRN Reason: Pain or Fever Stop: 03/13/24 03:04 Last Admin: 02/12/24 21:01 Dose: 650 mg Hydrocodone Bitart/Acetaminophen (Hydrocodone/Acetamophen 5/325mg Tab) 1 tab PO Q6H PRN PRN Reason: Pain Stop: 02/26/24 03:04 Allopurinol (Allopurinol 300 Mg Tab) 300 mg PO DAILY EVAN Stop: 03/13/24 08:59 Last Admin: 02/13/24 08:45 Dose: 300 mg Amlodipine Besylate (Amlodipine Besylate 5 Mg Tab) 5 mg PO DAILY EVAN Stop: 03/13/24 08:59 Last Admin: 02/13/24 08:45 Dose: 5 mg Docusate Sodium (Docusate Sodium Syrup 100 Mg/10 Ml Udc) 50 mg PO BID EVAN Stop: 03/13/24 08:59 Last Admin: 02/13/24 08:44 Dose: Not Given Fluticasone/Vilanterol (Fluticasone/Vilanterol 100/25mcg 14 Puffs/Inhaler) 1 puffs INH DAILY EVAN Stop: 03/13/24 08:59 Last Admin: 02/13/24 08:45 Dose: 1 puffs Promethazine HCl (Phenergan) 6.25 mg in 50.25 mls @ 201 mls/hr IV Q6H PRN PRN Reason: Nausea And Vomiting Stop: 03/13/24 17:17 Levothyroxine Sodium (Levothyroxine Sodium 125 Mcg Tablet) 125 mcg PO DAILYBB [facility] Stop: 03/13/24 06:29 Last Admin: 02/13/24 05:32 Dose: 125 mcg Metoprolol Succinate (Metoprolol Succ 25mg Ext Rel Tab) 25 mg PO BID EVAN Stop: 03/13/24 10:29 Last Admin: 02/13/24 08:46 Dose: 25 mg Montelukast Sodium (Montelukast Sodium 10 Mg Tablet) 10 mg PO DAILY EVAN Stop: 03/13/24 08:59 Last Admin: 02/13/24 08:44 Dose: 10 mg Nitroglycerin (Nitroglycerin Sl 0.4 Mg/Tab Tab) 0.4 mg SL Q5M PRN PRN Reason: Chest Pain Stop: 03/13/24 03:04 Oxybutynin Chloride (Oxybutynin Chloride Xl 5 Mg Tabcr) 10 mg PO DAILY EVAN Stop: 03/13/24 08:59 Last Admin: 02/13/24 08:45 Dose: 10 mg Pantoprazole Sodium (Pantoprazole 40 Mg Tab) 40 mg PO DAILY EVAN Stop: 03/13/24 08:59 Last Admin: 02/13/24 08:44 Dose: 40 mg Polyethylene Glycol (Polyethylene (Miralax) 17 Gm Pack) 17 gm PO DAILY PRN PRN Reason: Constipation Stop: 03/13/24 03:04 Simvastatin (Simvastatin 20 Mg Tab) 20 mg PO HS EVAN Stop: 03/13/24 20:59 Last Admin: 02/12/24 21:04 Dose: 20 mg Venlafaxine HCl (Venlafaxine Hcl Xr 75 Mg Capxr) 75 mg PO DAILY EVAN Stop: 03/13/24 08:59 Last Admin: 02/13/24 08:44 Dose: 75 mg Vitamin D (Cholecalciferol 25 Mcg (1000 Units) Tab) 50 mcg PO DAILY EVAN Stop: 03/13/24 08:59 Last Admin: 02/13/24 08:44 Dose: 50 mcg Zolpidem Tartrate (Zolpidem Tartrate 5 Mg Tab) 10 mg PO HS PRN PRN Reason: Insomnia Stop: 03/13/24 03:48 Last Admin: 02/12/24 22:58 Dose: 10 mg (1) Chest pain Chest pain type: unspecified Qualified Code(s): R07.9 - Chest pain, unspecified
--- NOTE | 2024-02-13 16:58 | Communication Note ---
Date of Service: February 13, 2024 Patient referred and underwent coronary angiography due to presenting symptoms chest pain and abnormal EKG Study demonstrated normal coronary angiography without obstruction Patient tolerating increased beta-sagar dosing Will continue metoprolol succinate 25 mg twice per day Likely discharge in a.m.
[2024-02-13] MEDS: HYDROCODONE/ACETAMOPHEN 5/325MG TAB PO PRN (22:33)
--- NOTE | 2024-02-13 23:45 | Electrocardiogram Report ---
Test Reason : Blood Pressure : */* mmHG Vent. Rate : 109 BPM Atrial Rate : 109 BPM P-R Int : 156 ms QRS Dur : 120 ms QT Int : 360 ms P-R-T Axes : 37 6 114 degrees QTcB Int : 484 ms Sinus tachycardia Left ventricular hypertrophy Left bundle branch block Abnormal ECG No previous ECGs available Confirmed by Piter Gomez ([id number]) on 02/13/2024 11:44:52 PM Referred By: REFERRED SELF Confirmed By: Piter Gomez
--- NOTE | 2024-02-13 23:46 | Electrocardiogram Report ---
Test Reason : Blood Pressure : */* mmHG Vent. Rate : 66 BPM Atrial Rate : 66 BPM P-R Int : 146 ms QRS Dur : 86 ms QT Int : 438 ms P-R-T Axes : 40 24 24 degrees QTcB Int : 459 ms Normal sinus rhythm T wave abnormality, consider anterior ischemia Abnormal ECG When compared with ECG of 11-Feb-2024 16:18, T wave inversion now evident in Anterior leads Left bundle branch block is no longer Present Confirmed by Piter Gomez [id number] on 02/13/2024 11:45:45 PM Referred By: REFERRED SELF Confirmed By: Piter Gomez
[2024-02-14 08:21] VITALS: PULSE 60; RESP 18; TEMP 97.5; O2SAT 94
[2024-02-14 08:53] LABS: BUN Creatinine Ratio 29.2 (10-20); Calcium 9.1 mg/dl (8.6-10.3); Magnesium 1.9 mg/dl (1.7-2.4); Phosphorus 3.5 mg/dl (2.5-4.9); Potassium 4.4 mmol/L (3.5-5.1)
[2024-02-14 09:35] VITALS: BP 114/76
--- NOTE | 2024-02-14 09:36 | Discharge Summary ---
Date of Service February 14, 2024 Admission HPI Per Admitting Provider 63-year-old female with past medical history significant for hypertension, asthma, diverticulitis, sepsis and UTI, kidney stones, hypothyroidism, Woodard's esophagus, chronic back pain, duodenal tumor benign as per patient presents with chest pain and palpitations. Patient states since last Friday she is having left-sided chest heaviness on and off and also noticed left arm numbness about 3 times since last Friday. The pain comes on its own, lasts for short period time and goes away. She went to [facility] on Friday and Friday and workup with CT chest and CT head were unremarkable per patient. Seems her institute scientist asked her to come to our hospital. Patient states she is having flushing and headaches and palpitations going on for some time. Patient states that when she leans forward her heart rate goes up. She is followed with cardiology. Says she has a loop recorder placed on December 2022 and so far no abnormal readings as per patient. She says she had cardiac cath about 4 years ago and it was unremarkable. And she had stress test about 1 and half years ago and was okay per patient . Having headaches on and off. Has some neck pain. Has chronic back pain. Last couple of days feeling dizzy and nauseous and diarrhea. Currently afebrile. Vision is okay. No earache. No runny nose or sore throat. No cough. Appetite is okay. No abdominal pain. No blood in the stools. Micturating okay. In the ER she had episode of tachycardia and a high blood pressure. Past medical history. As mentioned above Past surgical history. Back surgeries. EGD and colonoscopy. Tonsillectomy. Cholecystectomy. Bladder tuck surgery. Hysterectomy and oophorectomy. Cardiac cath. Social history. Denies smoking. No alcohol use. No drug use. Family history. Father has hyperlipidemia, hypertension and strokes. Cancer in the family. Admission Exam Per Admitting Provider General- Not in distress Head- atraumatic Eyes- PERRL. ENT- oropharynx clear Neck- supple, no JVD. Lungs- clear to auscultation no wheezing or crackles Heart- regular rate and rhythm; no murmur, no gallop. Abdomen- normal bowel sounds, soft, nontender, no distension Extremities- no pretibial edema, no erythema seen Neuro- alert, oriented PERRL, no facial palsy; no dysarthria; moves extremities Principal Diagnosis Chest pain, sinus tachycardia, intermittent palpitations, intermittent hypertension Discharge Exam General- Not in distress Head- atraumatic Eyes- PERRL. ENT- oropharynx clear Neck- supple, no JVD. Lungs- clear to auscultation no wheezing or crackles Heart- regular rate and rhythm; no murmur, no gallop. Abdomen- normal bowel sounds, soft, nontender, no distension Extremities- no pretibial edema, no erythema seen Neuro- alert, oriented PERRL, no facial palsy; no dysarthria; moves extremities Discharge Data Allergies Allergy/AdvReac Type Severity Reaction Status Date / Time No Known Allergies Allergy Unverified 11/27/20 15:32 Consultations 02/11/24 23:26 ED Decision to Admit Stat 02/12/24 08:00 Consult Cardiology Routine Procedures Performed Operation Date: 02/13/24 14:00 Actual Procedures p Cineradiography w/Routine Exam - Cas Santos MD p Cath, Left with Cors and Vent - Cas Santos MD Ordered Studies 02/11/24 21:04 CT angio chest PE protocol Stat FINDINGS: Pulmonary arteries: Adequate pulmonary artery opacification. Normal caliber main pulmonary artery. No evidence of pulmonary embolism. Aorta: No acute findings. No aortic aneurysm or dissection. Lungs: Unremarkable. No mass. No consolidation. Pleural space: Unremarkable. No significant effusion. No pneumothorax. Heart: Unremarkable. No cardiomegaly. No significant pericardial effusion. Mediastinum: Small hiatal hernia. Bones/joints: No acute fracture. No dislocation. Soft tissues: Unremarkable. Lymph nodes: Unremarkable. No enlarged lymph nodes. Liver: Benign hepatic cyst. Tubes, lines and devices: Loop recorder implanted in the anterior left chest wall. IMPRESSION: No evidence of pulmonary embolism. 02/13/24 10:25 CL Cath Imgs for PACS use only Routine Hospital Course (1) Chest pain: 63-year-old female with past medical history significant for hypertension, asthma, diverticulitis, sepsis and UTI, kidney stones, hypothyroidism, Woodard's esophagus, chronic back pain, duodenal tumor benign as per patient presents with chest pain and palpitations. Patient states since last Friday she is having left-sided chest heaviness on and off and also noticed left arm numbness about 3 times since last Friday. The pain comes on its own, lasts for short period time and goes away. She went to [facility] on Friday and Friday and workup with CT chest and CT head were unremarkable per patient. Seems her institute scientist asked her to come to our hospital. Patient states she is having flushing and headaches and palpitations going on for some time. Patient states that when she leans forward her heart rate goes up. She is followed with cardiology. Says she has a loop recorder placed on December 2022 and so far no abnormal readings as per patient. She says she had cardiac cath about 4 years ago and it was unremarkable. And she had stress test about 1 and half years ago and was okay per patient . Having headaches on and off. Has some neck pain. Has chronic back pain. Last couple of days feeling dizzy and nauseous and diarrhea. Currently afebrile. Vision is okay. No earache. No runny nose or sore throat. No cough. Appetite is okay. No abdominal pain. No blood in the stools. Micturating okay. In the ER she had episode of tachycardia and a high blood pressure. Chest pains and palpitations Sinus tachycardia Intermittent hypertension On and off Flushing and sweating Initial ACS workup okay followed serial enzymes and repeated EKG and echo Monitoring telemetry Random urine metanephrines sent by ER plasma metanephrines -pending D-dimer is elevated but CTA chest begat. for PE Labs okay. Calcium 10.5 we will follow repeat labs Lyme screen and Anaplasma and Babesia screen negative Cardiology consulted for further recommendations 1. Chest pain and shoulder pain. No evidence of myocardial ischemia despite sustained symptoms and elevated heart rates greater than 130 for extended periods of time. Normal troponin. No wall motion abnormalities on echocardiogram. No indications for stress testing currently given heart rate above target stress rate without ischemia Findings not suspicious for acute coronary syndrome. Repeat EKG. 2. Elevated heart rate/sinus tachycardia: Indwelling loop recorder present but no recently noted arrhythmias per patient heart rates elevated on telemetry without precipitating cause. No pain, anemia, hypoxia. Thyroid function normal Blood pressures have been intermittently elevated. Agree with catecholamines as ordered. Will recommend increasing beta-sagar therapy with metoprolol succinate to 25 mg twice per day. Will discontinue atenolol Effexor/oxybutynin may be contributing to elevated heart rate 02/13/2024 Symptoms of chest pain and pressure have improved however with new EKG abnormalities anterior precordial leads Heart rate and blood pressure better controlled Discussed findings in detail given multiple medical care facility presentations recently and sustained chest discomfort with abnormal EKG will refer for diagnostic coronary angiography. Patient referred and underwent coronary angiography due to presenting symptoms chest pain and abnormal EKG (02/13/24) Study demonstrated normal coronary angiography without obstruction Patient tolerating increased beta-sagar dosing Will continue metoprolol succinate 25 mg twice per day Asthma Continue home inhalers Hypothyroidism Continue home Synthyroid TSH 1.6 Chronic back pain Continue home pain medications as needed Hyperlipidemia On statin Woodard's esophagus On Protonix Total Time Total Time Spent Total Time Spent (In Minutes): 40 Discharge Plan Discharge Items Patient Disposition: Home - Self-Care Reason For Visit: CHEST PAIN, PALPITATIONS Discharge Diagnosis: Chest pain, sinus tachycardia, intermittent palpitations, intermittent hypertension Activity: Per Instructions section Non-emergency contact: Primary Care Provider and Director Of Compensation Call non-emergency contact if: you have any medication questions and your symptoms worsen Follow-up/Referrals: Juan Sanford D.O. [Primary Care Provider] - Diet: Heart Healthy Addtl Attending Provider Instructions: Follow up with your primary care doctor and institute scientist. Start taking metoprolol succinate 25 mg twice a day instead of atenolol. Discuss with your primary care doctor if you can stop taking Effexor. Pending Studies at Discharge: Yes Studies:: urine , plasma catecholamines Stand-Alone Forms: My [facility] [employer], Smoking Cessation Medications and DC Order Prescriptions: New metoprolol succinate 25 mg Tablet Extended Release 24 Hr 25 mg PO BID Qty: 60 0RF Continued venlafaxine 75 mg capsule,extended release 24hr 75 mg PO BID oxybutynin chloride 10 mg tablet extended release 24hr 10 mg PO DAILY hydrocodone-acetaminophen 5-325 mg tablet 1 tab PO Q6H PRN (Reason: Pain) amlodipine 5 mg tablet 5 mg PO DAILY pantoprazole 40 mg tablet,delayed release (DR/EC) 40 mg PO DAILY simvastatin 20 mg tablet 20 mg PO HS levothyroxine 125 mcg tablet 125 mcg PO DAILY montelukast 10 mg tablet 10 mg PO DAILY allopurinol 300 mg tablet 300 mg PO DAILY docusate sodium 50 mg Capsule 50 mg PO BID zolpidem 10 mg Tablet 10 mg PO HS PRN (Reason: Insomnia) cholecalciferol (vitamin D3) 50 mcg (2,000 unit) Tablet 50 mcg PO DAILY Dulera 100-5 mcg/actuation Hfa Aerosol Inhaler 2 puff INHALATION BID Discontinued atenolol 25 mg tablet 25 mg PO DAILY Discharge Orders: Discharge Order (Routine); Ordered 02/14/24 Ordered By: Elliott Velez Admission Data Admit Date/Time: 02/12/24 17:17 Attending Provider: Elliott Velez Admit Provider: Elliott Velez Primary Care Provider: Juan Sanford Other Providers: Padilla Campbell; Justice Angel
[2024-02-14] MEDS: PNEUMOCOCCAL VACCINE (PCV20) 20-VAL CONJ-DIP CRM/PF 0.5 ML SYR IM ONE (09:41)
[2024-02-14] MEDS: INFLUENZA VACC TS2024-25(6m+)/PF (IIV3) 0.5mL Syr IM ONE (09:43)
--- NOTE | 2024-02-14 09:58 | Cardiology Progress Note ---
Date of Service February 14, 2024 Assessment & Plan (1) Chest pain: (2) Hot flashes: (3) Intermittent hypertension: (4) Sinus tachycardia: Plan 63-year-old female with complex history with limited records available from past testing but good historian. Intermittent chest pain and hypertension as well as tachycardia times several years. Recent ER evaluations at [facility] without evidence of myocardial ischemia by enzyme or EKG. Chest CT negative twice for pulmonary embolus focal abnormality Chest CT last night reviewed with demonstration of normal cardiac silhouette, normal aortic size, normal origin of coronary arteries with proximal vessels well-visualized without obstruction. Telemetry since admission demonstrates sinus and sinus tachycardia with minimal activity Catecholamine evaluation ordered in ER pending Impression: 1. Chest pain and shoulder pain. No evidence of myocardial ischemia despite sustained symptoms and elevated heart rates greater than 130 for extended periods of time. Normal troponin. No wall motion abnormalities on echoc ardiogram. No indications for stress testing currently given heart rate above target stress rate without ischemia Findings not suspicious for acute coronary syndrome. Will repeat EKG today 2. Elevated heart rate/sinus tachycardia: Indwelling loop recorder present but no recently noted arrhythmias per patient heart rates elevated on telemetry without precipitating cause. No pain, anemia, hypoxia. Thyroid function normal Blood pressures have been intermittently elevated. Agree with catecholamines as ordered. Will recommend increasing beta-sagar therapy with metoprolol succinate to 25 mg twice per day. Will discontinue atenolol Effexor/oxybutynin may be contributing to elevated heart rate 02/13/2024 Symptoms of chest pain and pressure have improved however with new EKG abnormalities anterior precordial leads Heart rate and blood pressure better controlled Discussed findings in detail given multiple medical care facility presentations recently and sustained chest discomfort with abnormal EKG will refer for diagnostic coronary angiography. Patient to be kept n.p.o. with procedure to perform later today 02/14/2024 No further cardiac symptoms or complaints tolerating medication adjustments. Coronary angiography yesterday without obstructive disease possible diastolic dysfunction/microvascular disease Sinus tachycardia and hypertensive response, symptomatic exertion now resolved with rate control Plan: Continue metoprolol succinate 25 mg twice per day, discontinue atenolol Continue other medications including amlodipine Patient stable for discharge from cardiac standpoint. Needs follow-up with primary motel maid Dr. Foster 2 to 4 weeks. Results and data to be forwarded to primary care physician and motel maid as above Admission and Anticipated Discharge Date Admission Date: February 12, 2024 Subjective Patient seen and personally examined, chart, telemetry reviewed Heart rate much better controlled No further hot flashes chest pains or shortness of breath Right radial access site from coronary angiography yesterday, healing well Patient ambulatory and feeling improved Review of Systems Review of Systems: All systems reviewed & are unremarkable except as noted in Subjective Physical Exam Constitutional: WD/WN, vitals as above no acute distress Eyes: PERRL, conjunctivae normal, anicteric sclerae ENMT: external ear and nose normal, oropharynx normal Neck: trachea midline, no thyromegaly Thyroid: normal thyroid Respiratory: normal respiratory effort, lungs clear to auscultation Cardiovascular: Rate/Rhythm: regular rate and regular rhythm Heart Sounds: normal S1 and normal S2; no murmur Vessels: femoral pulses present and radial pulses present (Right radial access site healing well); no JVD, no carotid bruit and no abdominal aortic bruit Extremities: no edema Gastrointestinal (Abdomen): normal bowel sounds, soft, nontender, no hepatosplenomegaly Musculoskeletal: no cyanosis or clubbing, extremities motor strength 5/5 Results & Data Vital Signs (Past 12 Hours) Vital Signs Temp Pulse Pulse Resp BP BP Pulse Ox 02/14/24 09:34 36.4 C L 60 18 98/64 L 114/76 94 02/14/24 08:20 36.4 C L 60 18 98/64 L 94 02/14/24 07:23 61 02/14/24 04:47 36.5 C 64 16 102/71 96 02/14/24 00:25 36.4 C L 62 16 107/69 96 02/13/24 21:57 63 O2 Del Method 02/14/24 09:34 02/14/24 08:20 Room Air 02/14/24 07:23 02/14/24 04:47 Room Air 02/14/24 00:25 Room Air 02/13/24 21:57 (1) Chest pain Chest pain type: unspecified Qualified Code(s): R07.9 - Chest pain, unspecified
--- NOTE | 2024-02-14 11:52 | Electrocardiogram Report ---
Test Reason : Blood Pressure : */* mmHG Vent. Rate : 60 BPM Atrial Rate : 60 BPM P-R Int : 146 ms QRS Dur : 86 ms QT Int : 424 ms P-R-T Axes : 42 17 33 degrees QTcB Int : 424 ms Normal sinus rhythm with sinus arrhythmia Normal ECG When compared with ECG of 13-Feb-2024 06:24, No significant change was found Confirmed by Cas Cardoso [id number] on 02/14/2024 11:52:07 AM Referred By: REFERRED SELF Confirmed By: Cas Cardoso
[2024-02-15 04:53] LABS: Babesia microti DNA Not Detected (Not Detected)
[2024-02-17 11:15] LABS: Metanephrine, Plasma 54 pg/mL (<=57); Normetanephrine Plasma 116 pg/mL (<=148); Total Metanephrine Plasma 170 pg/mL (<=205)
== END 2024-02-14 10:15 | disposition home or self-care (01) | DRG 287 ==
LOC: ED 16:07 → 4W 16:07